=== PATIENT | male | born 1960 | race Caucasian/White ===

== ENCOUNTER → 2020-12-15 | Outpatient (CLI) | payer MEDICAID, OTHER ==
--- NOTE | 2020-12-15 16:02 | REP ---
INDICATION: RETAINED FOREIGN BODY FRAGMENTS, UNSPECIFIED MATERIAL COMPARISON: None. TECHNIQUE: AP and lateral views of the right tibia/fibula. FINDINGS: Age-related changes at the knee and ankle joint. No acute fracture or dislocation. No subcutaneous emphysema or foreign body. IMPRESSION: . No acute fracture or dislocation. <Electronically signed by Angus Lewis > 12/15/20 [id number]
--- NOTE | 2020-12-15 16:04 | REP ---
INDICATION: RETAINED FOREIGN BODY FRAGMENTS, UNSPECIFIED MATERIAL COMPARISON: None. TECHNIQUE: PA and lateral. FINDINGS: The mediastinum and cardiac silhouette are normal. The lung gay are clear and without acute consolidation, effusion, or pneumothorax. The skeletal structures are intact and normal. There may be a tiny 2 mm foreign body with in the subcutaneous tissue along the right parasternal anterior chest wall. No further foreign body identified or suggested. IMPRESSION: No acute cardiopulmonary process. Questionable tiny foreign body in the subcutaneous tissue along the anterior right chest wall. <Electronically signed by Angus Lewis > 12/15/20 [id number]
== END ==
LOC: M RAD 15:35
PROVIDERS: ATTEND Pediatrics
DX: Z18.9 Retained foreign body fragments, unspecified material (principal)

== ENCOUNTER → 2021-03-18 | Outpatient (CLI) | payer OTHER ==
[~2021-03-18] MED LIST: LISI10TA22
== END ==
LOC: M LABSMTC 10:05
PROVIDERS: ATTEND Anesthesiology
DX: Z01.812 Encounter for preprocedural laboratory examination (principal); Z11.52 Encounter for screening for COVID-19

== ENCOUNTER 2021-03-23 11:17 | Day surgery (SDC) | payer OTHER ==
[~2021-03-23] VITALS: Ht 175.3 cm; Wt 96.6 kg
[~2021-03-23 11:17] MED LIST changes: +LIDOCAINE 2% 100MG/5ML SDV (FOR ANES.) As Ordered ONE; +NS 1,000 ML IV ONE; +propofoL 200 MG/20 ML VIAL As Ordered ONE
--- NOTE | 2021-03-23 13:56 | ROOR ---
Patient Name: Cameron Morales Procedure Date: 03/23/2021 1:15 PM Date of : 1960 Age: 60 Room: [facility] Gender: Male Note Status: Finalized Procedure: Colonoscopy Indications: Screening for colorectal malignant neoplasm Providers: Jose Valerio MD Referring MD: Olga Berman MD Requesting Provider: Medicines: Monitored Anesthesia Care Complications: No immediate complications. Procedure: Pre-Anesthesia Assessment: - Prior to the procedure, a History and Physical was performed, and patient medications and allergies were reviewed. The patient is competent. The risks and benefits of the procedure and the sedation options and risks were discussed with the patient. All questions were answered and informed consent was obtained. Patient identification and proposed procedure were verified by the physician, the nurse and the anesthesiologist in the endoscopy suite. Mental Status Examination: alert and oriented. Airway Examination: normal oropharyngeal airway and neck mobility. Respiratory Examination: clear to auscultation. CV Examination: normal. Prophylactic Antibiotics: The patient does not require prophylactic antibiotics. Prior Anticoagulants: The patient has taken no previous anticoagulant or antiplatelet agents. ASA Grade Assessment: II - A patient with mild systemic disease. After reviewing the risks and benefits, the patient was deemed in satisfactory condition to undergo the procedure. The anesthesia plan was to use monitored anesthesia care (MAC). Immediately prior to administration of medications, the patient was re-assessed for adequacy to receive sedatives. The heart rate, respiratory rate, oxygen saturations, blood pressure, adequacy of pulmonary ventilation, and response to care were monitored throughout the procedure. The physical status of the patient was re-assessed after the procedure. The Colonoscope was introduced through the anus and advanced to the cecum, identified by appendiceal orifice and ileocecal valve. The colonoscopy was technically difficult and complex due to inadequate bowel prep, large indirect inguinoscrotal hernia containing sigmoid colon. This was helped with manual pressure. Hernia is chronically irreucible. The quality of the bowel preparation was poor. Findings: The perianal and digital rectal examinations were normal. A few small-mouthed diverticula were found in the sigmoid colon, transverse colon and ascending colon. Two flat polyps were found in the transverse colon. The polyps were diminutive in size. These polyps were removed with a cold snare. Resection and retrieval were complete. Estimated blood loss was minimal. The retroflexed view of the distal rectum and anal verge was normal and showed no anal or rectal abnormalities. Large amount of lavage performed to complete procedure, thick leftover semi solid stools found all throughout colon. I did not see any large masses, polyps but small/dimunitive flat polyps may hav been missed. Impression: - Preparation of the colon was poor. - Diverticulosis in the sigmoid colon, in the transverse colon and in the ascending colon. - Two diminutive polyps in the transverse colon, removed with a cold snare. Resected and retrieved. - The distal rectum and anal verge are normal on retroflexion view. Recommendation: - Discharge patient to home (ambulatory). - - Repeat colonoscopy after elective repair of the hernia. - Return to my office in 2 weeks. Procedure Code(s): --- Professional --- 56957, Colonoscopy, flexible; with removal of tumor(s), polyp(s), or other lesion(s) by snare technique Diagnosis Code(s): --- Professional --- Z12.11, Encounter for screening for malignant neoplasm of colon K63.5, Polyp of colon K57.30, Diverticulosis of large intestine without perforation or abscess without bleeding CPT copyright 2019 [employer]. All rights reserved. The codes documented in this report are preliminary and upon research neuropsychologist review may be revised to meet current compliance requirements. Jose Valerio MD Jose Valerio MD 03/23/2021 1:56:26 PM Electronically signed by Jose Valerio MD Number of Addenda: 0 Note Initiated On: 03/23/2021 1:15 PM Estimated Blood Loss: Estimated blood loss was minimal.
[2021-03-23 14:08] VITALS: BP 139/92
== END 2021-03-23 14:09 | disposition home or self-care (01) ==
LOC: M OPP 11:17
PROVIDERS: ATTEND Surgery
DX: Z12.11 Encounter for screening for malignant neoplasm of colon (principal); D12.3 Benign neoplasm of transverse colon; K57.30 Diverticulosis of large intestine without perforation or abscess without bleeding

== ENCOUNTER → 2021-05-05 | Outpatient (CLI) | payer OTHER ==
[~2021-05-05] MED LIST changes: -LIDOCAINE 2% 100MG/5ML SDV (FOR ANES.) As Ordered ONE; -LISI10TA22; +LISI10TA22 PO; -NS 1,000 ML IV ONE; -propofoL 200 MG/20 ML VIAL As Ordered ONE
== END ==
LOC: M LABSMTC 10:24
PROVIDERS: ATTEND Anesthesiology
DX: Z01.812 Encounter for preprocedural laboratory examination (principal); Z20.822 Contact with and (suspected) exposure to COVID-19

== ENCOUNTER → 2021-05-09 | Outpatient (CLI) | payer OTHER ==
--- NOTE | 2021-05-09 21:13 | ECGEPIP ---
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
== END ==
LOC: M EKG 10:57
PROVIDERS: ATTEND Anesthesiology
DX: Z01.818 Encounter for other preprocedural examination (principal); I10 Essential (primary) hypertension; Z96.9 Presence of functional implant, unspecified

== ENCOUNTER 2021-05-10 09:14 | Day surgery (SDC) | payer OTHER ==
[~2021-05-10] VITALS: Ht 175.3 cm; Wt 99.3 kg
[~2021-05-10 09:14] MED LIST changes: +CelecoXIB 400 MG CAP PO ONE; +LIDOCAINE 1% MDV 20ML VIAL SQ PRN; +LR 1,000 ML IV ONE; +ceFAZolin SOD 2 GM in IV 1 EA IV ONE
--- OUTSIDE RECORDS SUMMARY | 2021-05-10 09:19 | CCD | Continuity of Care Document ---
Author Author Cameron VALERIO MD Organization Unknown Address [address] [place] [address] [address] [place] [address] Phone [phone] Care Team Providers Care Catalyst Operator Chief Name Role Phone Olga Berman M.D. AUTM [phone] Problems Active Problems Provider Date Essential hypertension Jose Valerio MD Onset: 021 Social History Type Date Description Comments Sex Unknown ETOH Use 4 A Week Recreational Drug Use Current Drug User MARIJUAN A 3-4 X A DAY Tobacco Use Start: Unknown Denies Smoking Allergies, Adverse Reactions, Alerts Description No Known Drug Allergies Medications Active Medications SIG Qnty Indications Ordering Provide r Date No Active Medications Unknown 08/2020 History Medications Suprep Bowel Prep Kit 17.5-3.13-1.6GM/177ML Solution take per doctor's bowel prep instructions. 354ml Z12.1 1 Jose Valerio MD 03/16/2021 - 03/17/2021 No Active Medications Unknown - 03/16/2021 Immunizations Description No Information Available Vital Signs Date Vital Result Comment 12/30/2020 1:34pm BP Systolic 166 mmHg BP Diastolic 96 mmHg Heart Rate 98 /min Height 68 inches 5'8" Weight 223.38 lb BMI (Body Mass Index) 34.0 kg/m2 [place] Body Weight 154 lb Weight 101.323 kg BSA (Body Surface Area) 2.14 m2 Results Description No Information Available Procedures Description No Information Available Medical Devices Description No Information Available Encounters Description No Information Available Assessments Date Code Description Provider 12/30/2020 Z12.11 Screening for malignant neoplasm of colon Jose Valerio MD Plan of Treatment Future Appointment(s):* 04/05/2021 10:15 am - PAMELA Cabrera at [facility] 12/30/2020 - Jose Valerio MD* Z12.11 Screening for malignant neoplasm of colon* Comments:* Patient is an average risk for colorectal malignancy which at the age of 59 within 4-7% and increases with age. He is not complaining of any symptoms of changes in bowel habits, changes appears of his stools, bleeding with bowel movements nor any unexplained weight loss. I explained to him the rational for screening an opportunity to decrease risk for colorectal malignancy by removing the polyps in his colon and sending this for pathology which has prognostic significance on recurrence, and forming new colon polyps. The recommendation as it stands now is to do colonoscopy once every 10 years beginning at age 50 is no new or recommendations set the starting screening age of 45.I described to him how to perform a split those bowel prepI discussed with the patient the details of the proposed procedure, the benefits of performing the procedure, the most common risks on doing the procedure. This may include risks of dehydration, vomiting and abdominal cramping with the bowel prep, risks of bleeding, perforation during the colonoscopy. Perforation may happen up to a couple days after the procedure. Likewise this will be done under IV sedation and anesthesia we'll further discuss the risks of the medications they're going to use and risks of sedation.. I have given h im a chance to ask questions, voice out concerns. Patient has agreed to proceed Functional Status Description No Information Available Mental Status Description No Information Available Referrals Refer to Reason for Referral Status Appt Date Jose Valerio MD SCHEDULE COLONOSCOPY Scheduled 12/[address] [place] [phone]
--- OUTSIDE RECORDS SUMMARY | 2021-05-10 09:19 | CCD ---
Author Organization Unknown Address [address] [place] [address] Phone [phone] Care Team Providers Care Senior Business Manager Name Role Phone ARUNA BERMAN MD 3 [phone] [facility] [phone] Allergies Code Code System Name Reaction Severity Status Onset NKDA Medications Name Status Start Date Stop Date lisinopril 10 mg tablet TAKE ONE TABLET BY MOUTH EVERY DAY Active Not available Vitamin D3 50 mcg (2,000 unit) tablet Take 1 tablet every day by oral route. Active Not available Problems Name Status Onset Date Source Chronic Low Back Pain Active 12/15/2020 Vitamin D Deficiency Active 01/19/2021 Hyperlipidemia Active 01/19/2021 Left Inguinal Hernia Active 01/19/2021 Essential Hypertension Active 04/04/2021 Polyp of Colon Active 05/04/2021 Diverticulosis of Colon Active 05/04/2021 Procedures Date Name Performed by 12/15/2020 [facility] [address] [place] [phone] (Work Place) 12/15/2020 XR, Chest, 2 View [facility] [address] [place] [address] (Work Place) 12/15/2020 XR, Tibia + Fibula [facility] [address] [place] [address] (Work Place) Results Lab Results Date Name Specimen Result Interpretation Description Value Range Status Address 03/18/2021 SARS CoV 2 RNA, QL, Nasopharynx NASOPHARYNX No observation recorded. [facility]: [address] [facility] 01/21/2021 Thyroid Panel, Serum Blood venous Normal Thyroglobulin Antibodies <1 IU/mL < or = 1 IU/mL Final [facility]: [address] [facility] Blood venous Normal Thyroid Peroxidase Antibo dies 1 IU/mL <9 IU/mL Final [facility]: [address] [facility] 01/21/2021 Tsh Blood venous Normal Tsh 2.58 mIU/L 0.40-4.50 mIU/L Final [facility]: [address] [facility] 12/15/2020 Lipid Panel, Serum Blood venous Normal Jayne sterol, Total 192 mg/dL <200 mg/dL Final [facility]: [address] [facility] Blood venous Low HDL Cholesterol 34 mg/dL > or = 40 mg/dL Final [facility]: [address] [facility] Blood venous High Triglycerides 263 mg/dL <150 mg/dL Final [facility]: [address] [facility] Blood venous High LDL-cholesterol 120 mg/dL (ca lc) Final [facility]: [address] [facility] Blood venous High Chol/hdlc Ratio 5.6 (calc) <5 .0 (calc) [facility]: [address] [facility] Blood venous High Non HDL Cholesterol 158 mg/dL (calc) <130 mg/dL (calc) Final [facility]: [address] [facility] 12/15/2020 TSH, Serum or Plasma Blood venous Normal T3 Uptake 26 % 22-35 % Final [facility]: [address] [facility] Blood venous Normal T4 (Thyroxine), Total 5. 6 mcg/dL 4.9-10.5 mcg/dL Final [facility]: [address] [facility] Blood venous Normal Free T4 Index (T7) 1.5 1.4 -3.8 Final [facility]: [address] [facility] Blood venous High Tsh 6.70 mIU/L 0.40-4.50 mIU /L [facility]: [address] [facility] 12/15/2020 HIV 1+2 Ab + HIV1 P24 Ag, Quantitative I mmunoassay, Serum Blood venous Normal HIV Ag/Ab, 4TH Gen non-reactive non-reactive Fin al [facility]: [address] [facility] 12/15/2020 CMP, Serum or Plasma Blood venous High Glucose 100 mg/dL 65-99 mg/dL Final [facility]: [address] [facility] Blood venous Normal Urea Nitrogen (BUN) 9 mg/dL 7 -25 mg/dL [facility]: [address] [facility] Blood venous Normal Creatinine 1.00 mg/dL 0.70-1. 33 mg/dL [facility]: [address] [facility] Blood venous Normal eGFR Non-afr. [place]i 8 3 mL/min/1.73m2 > or = 60 mL/min/1.73m2 Final [facility]: [address] [facility] Blood venous Normal eGFR 96 mL/min/1.73m2 > or = 60 mL/min/1.73m2 Final [facility]: [address] [facility] Blood venous BUN/creatinine Ratio not applicable (calc) 6-22 (calc) [facility]: [address] [facility] Blood venous Normal Sodium 138 mmol/L 135-146 mmo l/L [facility]: [address] [facility] Blood venous Normal Potassium 4.1 mmol/L 3.5-5.3 mmol/L [facility]: [address] [facility] Blood venous Normal Chloride 100 mmol/L 98-110 mm ol/L [facility]: [address] [facility] Blood venous Normal Carbon Dioxide 26 mmol/L 20-3 2 mmol/L [facility]: [address] [facility] Blood venous Normal Calcium 9.8 mg/dL 8.6-10.3 mg /dL [facility]: [address] [facility] Blood venous Normal Protein, Total 7.7 g/dL 6.1-8 .1 g/dL [facility]: [address] [facility] Blood venous Normal Albumin 4.6 g/dL 3.6-5.1 g/dL [facility]: [address] [facility] Blood venous Normal Globulin 3.1 g/dL (calc) 1.9- 3.7 g/dL (calc) [facility]: [address] [facility] Blood venous Normal Albumin/globulin Ratio 1 .5 (calc) 1.0-2.5 (calc) [facility]: [address] [facility] Blood venous Normal Bilirubin, Total 0.8 mg/dL 0. 2-1.2 mg/dL Final [facility]: [address] [facility] Blood venous Normal Alkaline Phosphatase 82 U/L 3 5-144 U/L Final [facility]: [address] [facility] Blood venous Normal Ast 30 U/L 10-35 U/L Final [facility]: [address] [facility] Blood venous Normal Alt 30 U/L 9-46 U/L Final [facility]: [address] [place] [facility] 12/15/2020 Hepatitis C Virus Ab, Serum Blood venous Normal Hepatitis C Antibody non-reactive non-reactive Final [facility]: [address] [place] [facility] Blood venous Normal Index 0.01 <1.00 Final [facility]: [address] [facility] 12/15/2020 Vitamin D, 25-Hydroxy, Total, Serum Blood venous Low Vitamin D,25-Oh,total,ia 27 NG/mL 30-100 NG/mL Final [facility]: [address] [facility] 12/15/2020 HbA1C (Hemoglobin a1C), Blood Blood venous Normal Hemoglobin a1C 5.6 % of total HGB <5.7 % of total HGB Final [facility]: [address] [facility] 12/15/2020 CT + NG RNA, PCR, Unspecified Specimen Normal Chlamydia Trachomatis RNA, Tma, Urogenital not detected not detected Final [facility]: [address] [facility] Normal Neisseria Gonorrhoeae RNA, Tma, Urogenital not detected not detected [facility] [address] [facility] Comment Final [facility]: [address] [facility] 12/15/2020 RPR (Rapid Plasma Reagin), Serum Blood venous Normal RPR (DX) W/refl Titer and Confirmatory Testing non-reactive non-reactive Final [facility]: [address] [place] [facility] 12/15/2020 Urinalysis, Dipstick, Auto Normal Bilirubin ne g Final [facility]: [address] [facility] Normal Blood +- Final [facility]: [address] [facility] Normal Glucose neg Final [facility]: [address] [facility] Normal Ketone neg Final Main [facility]: [address] [facility] Normal Leukocytes neg Final Main [place] [facility]: [address] [facility] Normal Nitrite neg Final Main Ca [facility]: [address] [facility] Normal Ph 6.0 Final Main [facility] Medical: [address] [facility] Normal Protein neg Final Main Ca [facility]: [address] [facility] Normal Specific [place] 1.020 Final Main [place] [facility]: [address] [facility] Normal Urobilinogen 0.2 Final [facility] in [place] [facility]: [address] [facility] Past Encounters 05/04/2021 Pre-surgery Evaluation; Essential Hypertension; Hyperlipidemia; Vitamin D Deficiency; Administration of Influenza Vaccine Aruna Berman MD: [address] [place] [phone], Ph. 04/04/2021 Body Mass Index 30+ - Obesity; Hyperlipidemia; Essential Hypertension; Vitamin D Deficiency; Immunization Advised Aruna Berman MD: [address] [place] [phone], Ph. 01/21/2021 Hyperlipidemia; Vitamin D Deficiency; Thyroid Function Tests Abnormal; Body Mass Index 30+ - Obesity; Elevated Blood-pressure Reading without Diagnosis of Hypertension; Retained Foreign Body; Chest Wall Pain Aruna Berman MD: [address] [place] [phone], Ph. 12/15/2020 Patient New to Provider; Hyperlipidemia Screening; Endocrine/metabolic Screening; Venereal Disease Screening; Body Mass Index 30+ - Obesity; Elevated Blood-pressure Reading without Diagnosis of Hypertension; Retained Foreign Body; Immunization Due; Screening for Malignant Neoplasm of Colon; Left Inguinal Hernia Aruna Berman MD: [address] [place] [phone], Ph. Social History Tobacco Smoking Status Never Smoker Vaccine List Vaccine Type COVID-19, mRNA, LNP-S, PF, 100 mcg/0.5 m L dose 10/21/2020 11/15/2020 influenza, injectable, quadrivalent, pre servative free 05/04/2021 Tdap 10.5 mL Plan of Care Reminders Provider Appointments None recorded. Lab None recorded. Referral None recorded. Procedures None recorded. Surgeries None recorded. Imaging None recorded. Vitals 05/04/2021 03:40PM MEDICAL CLEARANCE Height Weight BMI Blood Pressure 68 in 213 lbs 4 oz 32.4 kg/m2 110/72 mm[Hg] 04/04/2021 09:00AM ESTABLISHED [id number] Height Weight BMI Blood Pressure 68 in 214 lbs 4 oz 32.6 kg/m2 123/81 mm[Hg] 01/21/2021 09:40AM ESTABLISHED [id number] Height Weight BMI Blood Pressure 68 in 219 lbs 33.3 kg/m2 171/101 mm[Hg] 12/15/2020 02:20PM NEW PATIENT (12yrs - OLDER) Height Weight BMI Blood Pressure 68 in 219 lbs 16 oz 33.5 kg/m2 (1) 171/99 mm [Hg] (2) 157/100 mm[Hg]
--- OUTSIDE RECORDS SUMMARY | 2021-05-10 09:19 | CCD | Continuity of Care Document ---
Author Author Cameron VALERIO MD Organization Unknown Address [address] [place] [phone] Phone [phone] Care Team Providers Care Strategy Manager Name Role Phone Olga Berman M.D. AUTM [phone] Problems Active Problems Provider Date Essential hypertension Jose Valerio MD Onset: 021 Social History Type Date Description Comments Sex Unknown ETOH Use 4 A Week Recreational Drug Use Current Drug User MARIJUAN A 3-4 X A DAY Tobacco Use Start: Unknown Denies Smoking Allergies, Adverse Reactions, Alerts Description No Known Drug Allergies Medications Active Medications SIG Qnty Indications Ordering Provide r Date Lisinopril 10mg Tablets Take One Tablet By Mouth Every Day Unknown History Medications Suprep Bowel Prep Kit 17.5-3.13-1.6GM/177ML Solution take per doctor's bowel prep instructions. 354ml Z12.1 1 Jose Valerio MD 03/16/2021 - 03/17/2021 No Active Medications Unknown - 03/16/2021 Immunizations Description No Information Available Vital Signs Date Vital Result Comment 04/07/2021 2:06pm BP Systolic 123 mmHg BP Diastolic 83 mmHg Body Temperature 98.3 F Height 68 inches 5'8" Weight 216.00 lb BMI (Body Mass Index) 32.8 kg/m2 [place] Body Weight 154 lb Weight 97.978 kg BSA (Body Surface Area) 2.11 m2 04/05/2021 10:04am BP Systolic 108 mmHg BP Diastolic 70 mmHg Body Temperature 98.3 F Height 68 inches 5'8" Weight 216.50 lb BMI (Body Mass Index) 32.9 kg/m2 [place] Body Weight 154 lb Weight 98.204 kg BSA (Body Surface Area) 2.11 m2 Results Test Acquired Date Facility Test Result H/L Range Note Laboratory test finding 03/23/2021 [facility] Main Lab [address] [place] [address] [phone] Pathology Request For Service (SEE NOTE) 1 1 FINAL DIAGNOSIS Transverse colon polyp, polypectomy: Tubular adenoma. 03/24/2021 - 1525 CLINICAL DIAGNOSIS Screening 03/24/2021 - 131 GROSS DIAGNOSIS Received in formalin labeled "transverse colon polyp" and consists of a fragment of tissue, 0.3 x 0.2 x 0.1 cm. All in one. -OA 03/24/2021 - 1315 Signed GABRIEL MÁRQUEZ MD 03/25/2021 0852 Procedures Date Code Description Status 04/05/2021 42964 Office/Outpatient Established Lo w MDM 20-29 Min Completed 03/23/2021 08541 Colonoscopy W/ Poly Completed Medical Devices Description No Information Available Encounters Description No Information Available Assessments Date Code Description Provider 04/05/2021 D12.3 Benign neoplasm of transverse co [place] PAMELA Cabrera 04/05/2021 K57.30 Diverticulosis of la rge intestine without perforation or abscess without bleeding PAMELA Cabrera 04/05/2021 K40.90 Unilateral inguinal hernia, without obstruction or gangrene, not specified as recurrent PAMELA Cabrera 03/23/2021 Z12.11 Encounter for screening for helen gnant neoplasm of colon Jose Valerio MD 03/23/2021 D12.3 Benign neoplasm of transverse co [place] Jose Valerio MD 03/23/2021 K57.30 Diverticulosis of la rge intestine without perforation or abscess without bleeding Jose Valerio MD 12/30/2020 Z12.11 Screening for malignant neoplasm of colon Jose Valerio MD Plan of Treatment No Information Available Functional Status Description No Information Available Mental Status Description No Information Available Referrals Refer to Reason for Referral Status Appt Date Jose Valerio MD SCHEDULE COLONOSCOPY Scheduled 12/14 [address] [facility] [address] [place] [address] [phone]
--- OUTSIDE RECORDS SUMMARY | 2021-05-10 09:19 | CCD ---
Author Author [facility] Organization [facility] Address Unknown Phone Unavailable Care Team Providers Care Lmsw Name Role Phone Laquita QUISPE MD Unavailable Unavailable Laquita QUISPE MD Unavailable Unavailable Laquita QUISPE MD Unavailable Unavailable Laquita QUISPE MD Unavailable Unavailable Laquita QUISPE MD Unavailable Unavailable Laquita QUISPE MD Unavailable Unavailable Laquita QUISPE MD Unavailable Unavailable Laquita QUISPE MD Unavailable Unavailable Laquita QUISPE MD Unavailable Unavailable Laquita QUISPE MD Unavailable Unavailable Laquita QUISPE MD Unavailable Unavailable Laquita QUISPE MD Unavailable Unavailable Laquita QUISPE MD Unavailable Unavailable Laquita QUISPE MD Unavailable Unavailable Laquita QUISPE MD Unavailable Unavailable Laquita QUISPE MD Unavailable Unavailable Laquita QUISPE MD Unavailable Unavailable Laquita QUISPE MD Unavailable Unavailable Laquita QUISPE MD Unavailable Unavailable Laquita QUISPE MD Unavailable Unavailable Laquita QUISPE MD Unavailable Unavailable Laquita QUISPE MD Unavailable Unavailable Laquita QUISPE MD Unavailable Unavailable Laquita QUISPE MD Unavailable Unavailable Laquita QUISPE MD Unavailable Unavailable Laquita QUISPE MD Unavailable Unavailable Laquita QUISPE MD Unavailable Unavailable Laquita QUISPE MD Unavailable Unavailable Laquita QUISPE MD Unavailable Unavailable Laquita QUISPE MD Unavailable Unavailable BARAYUGALaquita MD Unavailable Unavailable BARAYUGA, Laquita JC MD Unavailable Unavailable BARAYUGA, Laquita JC MD Unavailable Unavailable BARAYUGA, Laquita JC MD Unavailable Unavailable BARAYUGA, Laquita JC MD Unavailable Unavailable Antonella, Janet Unavailable Unavailable Antonella, Janet Unavailable Unavailable Antonella, Janet Unavailable Unavailable Antonella, Janet Unavailable Unavailable Antonella, Janet Unavailable Unavailable Antonella, Janet Unavailable Unavailable Antonella, Janet Unavailable Unavailable Antonella, Janet Unavailable Unavailable Antonella, Janet Unavailable Unavailable Antonella, Janet Unavailable Unavailable Antonella, Janet Unavailable Unavailable Antonella, Janet Unavailable Unavailable Antonella, Janet Unavailable Unavailable Antonella, Janet Unavailable Unavailable Antonella, Janet Unavailable Unavailable Antonella, Janet Unavailable Unavailable Antonella, Janet Unavailable Unavailable Antonella, Janet Unavailable Unavailable Antonella, Janet Unavailable Unavailable Antonella, Janet Unavailable Unavailable Antonella, Janet Unavailable Unavailable Antonella, Janet Unavailable Unavailable Antonella, Janet Unavailable Unavailable Antonella, Janet Unavailable Unavailable Antonella, Janet Unavailable Unavailable Antonella, Janet Unavailable Unavailable Romero, L Radha RPA Unavailable Unavailable Romero, L Radha RPA Unavailable Unavailable Romero, L Radha RPA Unavailable Unavailable Romero, L Radha RPA Unavailable Unavailable Romero, L Radha RPA Unavailable Unavailable Romero, L Radha RPA Unavailable Unavailable Romero, L Radha RPA Unavailable Unavailable Romero, L Radha RPA Unavailable Unavailable Romero, L Radha RPA Unavailable Unavailable Romero, L Radha RPA Unavailable Unavailable Romero, L Radha RPA Unavailable Unavailable Romero, L Radha RPA Unavailable Unavailable Romero, L Radha RPA Unavailable Unavailable Romero, L Radha RPA Unavailable Unavailable Romero, L Radha RPA Unavailable Unavailable Romero, L Radha RPA Unavailable Unavailable Romero, L Radha RPA Unavailable Unavailable Romero, L Radha RPA Unavailable Unavailable Romero, L Radha RPA Unavailable Unavailable Romero, L Radha RPA Unavailable Unavailable Romero, L Radha RPA Unavailable Unavailable Romero, L Radha RPA Unavailable Unavailable Romero, L Radha RPA Unavailable Unavailable Romero, L Radha RPA Unavailable Unavailable Romero, L Radha RPA Unavailable Unavailable Romero, L Radha RPA Unavailable Unavailable Romero, L Radha RPA Unavailable Unavailable Romero, L Radha RPA Unavailable Unavailable Ormero, L Radha RPA Unavailable Unavailable Romero, L Radha RPA Unavailable Unavailable Romero, L Radha RPA Unavailable Unavailable Romero, L Radha RPA Unavailable Unavailable Re-disclosure Warning The records that you are about to access may contain information from federally-assisted alcohol or drug abuse programs. If such information is present, then the following federally mandated warning applies: This information has been disclosed to you from records protected by federal confidentiality rules (42 CFR part 2). The federal rules prohibit you from making any further disclosure of this information unless further disclosure is expressly permitted by the written consent of the person to whom it pertains or as otherwise permitted by 42 CFR part 2. A general authorization for the release of medical or other information is NOT sufficient for this purpose. The Federal rules restrict any use of the information to criminally investigate or prosecute any alcohol or drug abuse patient.The records that you are about to access may contain highly sensitive health information, the redisclosure of which is protected by Article 27-F of the [facility] Public Health law. If you continue you may have access to information: Regarding HIV / AIDS; Provided by facilities licensed or operated by the [facility] Office of Mental Health; or Provided by the [facility] Office for People With Developmental Disabilities. If such information is present, then the following [facility] mandated warning applies: This information has been disclosed to you from confidential records which are protected by state law. State law prohibits you from making any further disclosure of this information without the specific written consent of the person to whom it pertains, or as otherwise permitted by law. Any unauthorized further disclosure in violation of state law may result in a fine or halfway sentence or both. A general authorization for the release of medical or other information is NOT sufficient authorization for further disc losure. Encounters Encounter Providers Location Date Indications Data Source(s ) Olga Berman MD: [place] [address], Ph. Attender: Olga Berman [place] - [facility] Medical 05/05/2021 12:00:00 AM EDT [facility] ([facility]) Olga Berman MD: [address], [place] [address], Ph. Attender: Olga Berman [facility] Medical 05/04/2021 12:00:00 AM EDT [facility] ([facility]) Olga Berman MD: [address], [place] [address], Ph. Attender: Olga Berman [facility] Medical 05/04/2021 12:00:00 AM EDT [facility] ([facility]) Outpatient Attender: HOSEA Donovan/Sirisha/Chip/ Reindl 04/07/2021 02:00:00 PM EDT [facility] ([facility]) Outpatient Attender: Radha Donovan/Sirisha/Chip/R eindl 04/05/2021 10:15:00 AM EDT [facility] ([facility]) Olga Berman MD: [address], [place] [address], Ph. Attender: Olga Berman [facility] Medical 04/04/2021 12:00:00 AM EDT [facility] ([facility]) Olga Berman MD: [address], [place] [address], Ph. Attender: Olga Berman [facility] Medical 04/04/2021 12:00:00 AM EDT [facility] ([facility]) Olga Berman MD: [address], [place] [address], Ph. Attender: Olga Berman [facility] Medical 04/04/2021 12:00:00 AM EDT [facility] ([facility]) Olga Berman MD: [address], [place] [address], Ph. Attender: Olga Berman [facility] Medical 01/21/2021 12:00:00 AM EDT [facility] ([facility]) Olga Berman MD: [address], [place] [address], Ph. Attender: Olga Berman [facility] Medical 01/21/2021 12:00:00 AM EDT [facility] ([facility]) Olga Berman MD: [address], [place] [address], Ph. Attender: Olga Berman [facility] Medical 01/21/2021 12:00:00 AM EDT [facility] ([facility]) Olga Berman MD: [address], [place] [address], Ph. Attender: Olga Berman [facility] Medical 01/21/2021 12:00:00 AM EDT [facility] ([facility]) Olga Berman MD: [address], [place] [address], Ph. Attender: Olga Berman [facility] Medical 12/15/2020 12:00:00 AM EDT [facility] ([facility]) Olga Berman MD: [address], [place] [address], Ph. Attender: Olga Berman [facility] Medical 12/15/2020 12:00:00 AM EDT [facility] ([facility]) Olga Berman MD: [address], [place] [address], Ph. Attender: Olga Berman [facility] Medical 12/15/2020 12:00:00 AM EDT [place] ([facility]) Olga Berman MD: [address], [place] [address], Ph. Attender: Olga Berman [facility] Medical 12/15/2020 12:00:00 AM EDT [place] ([facility]) Olga Berman MD: [address], [facility] [place] [address], Ph. Attender: Olga Berman [facility] Medical 12/15/2020 12:00:00 AM EDT [place] ([facility]) Immunizations Vaccine Date Status Description Data Source(s) New in 2011. IIV4 05/04/2021 04:06:00 PM EDT completed 05/04/20 21 [facility]) New in 2011. IIV4 05/04/2021 04:06:00 PM EDT completed 05/04/20 21 [facility]) Tdap 12/15/2020 03:19:00 PM EDT completed 12/15/2020 0.5 mL [place] ([facility]) Tdap 12/15/2020 03:19:00 PM EDT completed 12/15/2020 0.5 mL [place] ([facility]) Tdap 12/15/2020 03:19:00 PM EDT completed 12/15/2020 0.5 mL [facility] ([facility]) Tdap 12/15/2020 03:19:00 PM EDT completed 12/15/2020 0.5 mL [place] ([facility]) Tdap 12/15/2020 03:19:00 PM EDT completed 12/15/2020 0.5 mL [facility]) COVID-19, mRNA, LNP-S, PF, 100 mcg/0.5 mL dose 11/15/2020 12 :00:00 AM EDT completed 11/15/2020 [facility]) COVID-19, mRNA, LNP-S, PF, 100 mcg/0.5 mL dose 11/15/2020 12 :00:00 AM EDT completed 11/15/2020 [facility]) COVID-19, mRNA, LNP-S, PF, 100 mcg/0.5 mL dose 11/15/2020 12 :00:00 AM EDT completed 11/15/2020 [facility]) COVID-19, mRNA, LNP-S, PF, 100 mcg/0.5 mL dose 11/15/2020 12 :00:00 AM EDT completed 11/15/2020 [facility]) COVID-19, mRNA, LNP-S, PF, 100 mcg/0.5 mL dose 10/21/2020 12 :00:00 AM EDT completed 10/21/2020 [facility]) COVID-19, mRNA, LNP-S, PF, 100 mcg/0.5 mL dose 10/21/2020 12 :00:00 AM EDT completed 10/21/2020 [facility]) COVID-19, mRNA, LNP-S, PF, 100 mcg/0.5 mL dose 10/21/2020 12 :00:00 AM EDT completed 10/21/2020 [facility]) COVID-19, mRNA, LNP-S, PF, 100 mcg/0.5 mL dose 10/21/2020 12 :00:00 AM EDT completed 10/21/2020 [facility]) Medications Medication Brand Name Start Date Product Form Dose Route Admi nistrative Instructions Pharmacy Instructions Status Indications Reaction Description Data Source(s) No Active Medications 03/17/2021 12:00:00 AM EDT active [facility] ([facility] ) Suprep Bowel Prep Kit Suprep Bowel Prep Kit 03/16/2021 12:00:00 AM EDT completed [facility] ([facility] ) 10 mg 01/21/2021 12:00:00 AM EDT tablet 30 TAKE ONE TABLET BY MOUTH EVERY DAY TAKE ONE TABLET BY MOUTH EVERY DAY SOLD: 04/26/2021 [facility] 10 mg 01/21/2021 12:00:00 AM EDT tablet 30 TAKE ONE TABLET BY MOUTH EVERY DAY TAKE ONE TABLET BY MOUTH EVERY DAY SOLD: 03/24/2021 [facility] 10 mg 01/21/2021 12:00:00 AM EDT tablet 30 TAKE ONE TABLET BY MOUTH EVERY DAY TAKE ONE TABLET BY MOUTH EVERY DAY SOLD: 01/21/2021 [facility] 10 mg 01/21/2021 12:00:00 AM EDT tablet 30 TAKE ONE TABLET BY MOUTH EVERY DAY TAKE ONE TABLET BY MOUTH EVERY DAY SOLD: 02/17/2021 [facility] No Active Medications 12/30/2020 12:00:00 AM EDT completed [facility] ([facility], ) Insurance Providers Payer name Policy type / Coverage type Policy ID Covered republican ID Covered republican's relationship to zhou Policy Zhou Plan Information [facility] [id number] SP [id number] [facility] MED[facility] [id number] SP [id number] C [facility] [id number] SP [id number] Problems, Conditions, and Diagnoses Code Display Name Description Problem Type Effective Dates Data Source(s) 754799528 Diverticulosis of colon Diverticulosis of Colon Proble m 05/04/2021 12:00:00 AM EDT [facility] ([facility]) [id number] Polyp of colon Polyp of Colon Problem 05/04/2021 12:00: 00 AM EDT [facility] ([facility]) [id number] Diverticulosis of colon Diverticulosis of Colon Proble m 05/04/2021 12:00:00 AM EDT [facility] ([facility]) 89671339 Polyp of colon Polyp of Colon Problem 05/04/2021 12:00: 00 AM EDT [place] ([facility]) [id number] Essential hypertension Essential Hypertension Problem 04/04/2021 12:00:00 AM EDT [facility] ([facility]) 22191340 Essential hypertension Essential Hypertension Problem 04/04/2021 12:00:00 AM EDT [facility] ([facility]) [id number] Essential hypertension Essential Hypertension Problem 04/04/2021 12:00:00 AM EDT [facility] ([facility]) [id number] Left inguinal hernia Left Inguinal Hernia Problem 01/19/2021 12:00:00 AM EDT [facility] ([facility]) 55756169 Hyperlipidemia Hyperlipidemia Problem 01/19/2021 12:00: 00 AM EDT [facility] ([facility]) 59503650 Vitamin D deficiency Vitamin D Deficiency Problem 01/19/2021 12:00:00 AM EDT [facility] ([facility]) 372713933 Left inguinal hernia Left Inguinal Hernia Problem 01/19/2021 12:00:00 AM EDT [facility] ([facility]) 68049324 Hyperlipidemia Hyperlipidemia Problem 01/19/2021 12:00: 00 AM EDT [facility] ([facility]) 05532366 Vitamin D deficiency Vitamin D Deficiency Problem 01/19/2021 12:00:00 AM EDT [facility] ([facility]) 548651607 Left inguinal hernia Left Inguinal Hernia Problem 01/19/2021 12:00:00 AM EDT [facility] ([facility]) 34564094 Hyperlipidemia Hyperlipidemia Problem 01/19/2021 12:00: 00 AM EDT [facility] ([facility]) 68821860 Vitamin D deficiency Vitamin D Deficiency Problem 01/19/2021 12:00:00 AM EDT [facility] ([facility]) 311412950 Left inguinal hernia Left Inguinal Hernia Problem 01/19/2021 12:00:00 AM EDT [facility] ([facility]) 49086002 Hyperlipidemia Hyperlipidemia Problem 01/19/2021 12:00: 00 AM EDT [facility] ([facility]) 21307354 Vitamin D deficiency Vitamin D Deficiency Problem 01/19/2021 12:00:00 AM EDT [facility] ([facility]) 48846152 Essential hypertension Essential hypertension Problem 12/30/2020 12:00:00 AM EDT [facility] ([facility], ) 290816563 Chronic low back pain Chronic Low Back Pain Problem 12/15/2020 12:00:00 AM EDT [facility] ([facility]) 946388622 Chronic low back pain Chronic Low Back Pain Problem 12/15/2020 12:00:00 AM EDT [place] ([facility]) 886262835 Chronic low back pain Chronic Low Back Pain Problem 12/15/2020 12:00:00 AM EDT [place] ([facility]) 688900174 Chronic low back pain Chronic Low Back Pain Problem 12/15/2020 12:00:00 AM EDT [place] ([facility]) 402170930 Chronic low back pain Chronic Low Back Pain Problem 12/15/2020 12:00:00 AM EDT [place] ([facility]) Surgeries/Procedures Procedure Description Date Indications Data Source(s) OFFICE OUTPATIENT VISIT 15 MINUTES 04/07/2021 12:00:00 AM EDT [facility]) OFFICE OUTPATIENT VISIT 15 MINUTES 04/05/2021 12:00:00 AM EDT [facility]) Colonoscopy W/ Poly 03/23/2021 12:00:00 AM EDT [facility] ([facility]) Results ID Date Data Source [id number] 03/23/2021 01:42:00 PM EDT [facility]) Name Value Range Interpretation Code Description Data Claudette rce(s) Supporting Document(s) Surgical pathology study Laboratory test result [facility] ([facility]) FINAL DIAGNOSIS Transverse colon polyp, polypectomy: Tubular adenoma. 03/24/2021 - 1525 CLINICAL DIAGNOSIS Screening 03/24/2021 - 1316 GROSS DIAGNOSIS Received in formalin labeled "transverse colon polyp" and consists of a fragment of tissue, 0.3 x 0.2 x 0.1 cm. All in one. -OA 03/24/2021 - 1315 Signed GABRIEL MÁRQUEZ MD 03/25/2021 0852 ID Date Data Source [id number] 03/18/2021 09:55:00 AM EDT [place] ([facility]) Name Value Range Interpretation Code Description Data Claudette rce(s) Supporting Document(s) ID Date Data Source [id number] 03/18/2021 09:55:00 AM EDT [facility]) Name Value Range Interpretation Code Description Data Claudette rce(s) Supporting Document(s) ID Date Data Source [id number] 03/18/2021 09:55:00 AM EDT [facility]) Name Value Range Interpretation Code Description Data Claudette rce(s) Supporting Document(s) ID Date Data Source [id number] 01/21/2021 12:00:00 AM EDT [facility]) Name Value Range Interpretation Code Description Data Claudette rce(s) Supporting Document(s) Thyrotropin [Units/volume] in Serum or Plasma 2.58 mIU/L 0.40-4.50 Tsh [facility]) ID Date Data Source [id number] 01/21/2021 12:00:00 AM EDT [facility]) Name Value Range Interpretation Code Description Data Claudette rce(s) Supporting Document(s) Thyroglobulin Ab [Units/volume] in Serum or Plasma <1 < o r = 1 Thyroglobulin Antibodies [facility]) Thyroperoxidase Ab [Units/volume] in Serum or Plasma 1 IU/mL < 9 Thyroid Peroxidase Antibodies [facility]) ID Date Data Source [id number] 01/21/2021 12:00:00 AM EDT [facility]) Name Value Range Interpretation Code Description Data Claudette rce(s) Supporting Document(s) Thyrotropin [Units/volume] in Serum or Plasma 2.58 mIU/L 0.40-4.50 Tsh [facility]) ID Date Data Source [id number] 01/21/2021 12:00:00 AM EDT [facility]) Name Value Range Interpretation Code Description Data Claudette rce(s) Supporting Document(s) Thyroglobulin Ab [Units/volume] in Serum or Plasma <1 < o r = 1 Thyroglobulin Antibodies [facility] ([facility]) Thyroperoxidase Ab [Units/volume] in Serum or Plasma 1 IU/mL < 9 [facility] ID Date Data Source [id number] 01/21/2021 12:00:00 AM EDT [facility]) Name Value Range Interpretation Code Description Data Claudette rce(s) Supporting Document(s) Thyrotropin [Units/volume] in Serum or Plasma 2.58 mIU/L 0.40-4.50 Tsh [facility]) ID Date Data Source [id number] 01/21/2021 12:00:00 AM EDT [facility]) Name Value Range Interpretation Code Description Data Claudette rce(s) Supporting Document(s) Thyroglobulin Ab [Units/volume] in Serum or Plasma <1 < o r = 1 Thyroglobulin Antibodies [facility] ([facility]) Thyroperoxidase Ab [Units/volume] in Serum or Plasma 1 IU/mL < 9 Thyroid Peroxidase Antibodies [facility]) ID Date Data Source [id number] 12/15/2020 03:10:00 PM EDT [facility]) Name Value Range Interpretation Code Description Data Claudette rce(s) Supporting Document(s) Reagin Ab [Presence] in Serum by RPR non-reactive non-reactive RPR (DX) W/refl Titer and Confirmatory Testing [facility]) ID Date Data Source [id number] 12/15/2020 03:10:00 PM EDT [facility]) Name Value Range Interpretation Code Description Data Claudette rce(s) Supporting Document(s) Chlamydia trachomatis rRNA [Presence] in Unspecified specimen by Probe and target amplification method not detected not detected Chla mydia Trachomatis RNA, Tma, [facility] Neisseria gonorrhoeae rRNA [Presence] in Unspecified specimen by Probe and target amplification method not detected not detected Neis seria Gonorrhoeae RNA, Tma, Urogenital [place] ([facility]) comment Comment [facility] ([facility]) ID Date Data Source [id number] 12/15/2020 03:10:00 PM EDT [facility]) Name Value Range Interpretation Code Description Data Claudette rce(s) Supporting Document(s) Hemoglobin A1c/Hemoglobin.total in Blood 5.6 %_of_total_HGB <5.7 Hemoglobin a1C [facility]) ID Date Data Source [id number] 12/15/2020 03:10:00 PM EDT [facility]) Name Value Range Interpretation Code Description Data Claudette rce(s) Supporting Document(s) Calcidiol [Mass/volume] in Serum or Plasma 27 NG/mL 30-100 Below low normal Vitamin D,25-Oh,total,ia [facility]) ID Date Data Source [id number] 12/15/2020 03:10:00 PM EDT [facility]) Name Value Range Interpretation Code Description Data Claudette rce(s) Supporting Document(s) Hepatitis C virus Ab [Presence] in Serum or Plasma by Immuno assay non-reactive non-reactive Hepatitis C Antibody [place] ([facility]) Hepatitis C virus Ab Signal/Cutoff in Serum or Plasma by Immunoassa y <1.00 Index [facility]) ID Date Data Source [id number] 12/15/2020 03:10:00 PM EDT [facility]) Name Value Range Interpretation Code Description Data Claudette rce(s) Supporting Document(s) Glucose [Mass/volume] in Serum or Plasma 100 mg/dL 65-99 Above high normal Glucose [place] ([facility]) Urea nitrogen [Mass/volume] in Serum or Plasma 9 mg/dL 7-25 Urea Nitrogen (BUN) [facility] ([facility]) Glomerular filtration rate/1.73 sq M.pre dicted among non-blacks [Volume Rate/Area] in Serum, Plasma or Blood by Creatinine-based formula (CKD-EPI) 83 mL/min/1.73m2 > or = 60 eGFR Non-afr. Japanese [facility] ([facility]) Creatinine [Mass/volume] in Serum or Plasma 1.00 mg/dL 0.70-1.33 Creatinine [facility] ([facility]) Glomerular filtration rate/1.73 sq M.pre dicted among blacks [Volume Rate/Area] in Serum, Plasma or Blood by Creatinine-based formula (CKD-EPI) 96 mL/min/1.73m2 > or = 60 eGFR [facility] ([facility]) Sodium [Moles/volume] in Serum or Plasma 138 mmol/L 135-146 Sodium [facility] ([facility]) Urea nitrogen/Creatinine [Mass Ratio] in Serum or Plasma not applic able 6-22 BUN/creatinine Ratio [facility] ([facility]) Carbon dioxide, total [Moles/volume] in Serum or Plasma 26 mmol/L 20-32 Carbon Dioxide [facility] ([facility]) Potassium [Moles/volume] in Serum or Plasma 4.1 mmol/L 3.5-5.3 Potassium [facility] ([facility]) Chloride [Moles/volume] in Serum or Plasma 100 mmol/L 98-110 [facility]loride [facility] Globulin [Mass/volume] in Serum by calculation 3.1 g/dL_(calc) 1.9- 3.7 Globulin [place] ([facility]) Protein [Mass/volume] in Serum or Plasma 7.7 g/dL 6.1-8.1 Protein, Total [facility] Calcium [Mass/volume] in Serum or Plasma 9.8 mg/dL 8.6-10.3 Calcium [facility]) Albumin [Mass/volume] in Serum or Plasma 4.6 g/dL 3.6-5.1 Albumin [facility]) Bilirubin.total [Mass/volume] in Serum or Plasma 0.8 mg/dL 0.2-1 .2 Bilirubin, Total [place] ([facility]) Albumin/Globulin [Mass Ratio] in Serum or Plasma 1.5 (calc) 1.0-2 .5 Albumin/globulin Ratio [facility] ([facility]) Alkaline phosphatase [Enzymatic activity/volume] in Serum or Plasma 82 U/L 35-144 Alkaline Phosphatase [place] ([facility]) Aspartate aminotransferase [Enzymatic activity/volume] in Serum or Plasma 30 U/L 10-35 Ast [place] ([facility]) Alanine aminotransferase [Enzymatic activity/volume] in Seru m or Plasma 30 U/L 9-46 Alt [place] ([facility]) ID Date Data Source [id number] 12/15/2020 03:10:00 PM EDT [facility]) Name Value Range Interpretation Code Description Data Claudette rce(s) Supporting Document(s) HIV 1+2 Ab+HIV1 p24 Ag [Presence] in Serum or Plasma b y Immunoassay non-reactive non-reactive HIV Ag/Ab, 4TH Gen [facility]) ID Date Data Source [id number] 12/15/2020 03:10:00 PM EDT [facility]) Name Value Range Interpretation Code Description Data Claudette rce(s) Supporting Document(s) Thyroxine (T4) free index in Serum or Plasma by calculation 1.4-3.8 Free T4 Index (T7) [place] ([facility]) Triiodothyronine resin uptake (T3RU) in Serum or Plasma 26 % 22 -35 T3 Uptake [place] ([facility]) Thyroxine (T4) [Mass/volume] in Serum or Plasma 5.6 mcg/dL 4.9-10 .5 T4 (Thyroxine), Total [facility]) Thyrotropin [Units/volume] in Serum or Plasma 6.70 mIU/L 0. 40-4.50 Above high normal Tsh [facility]) ID Date Data Source [id number] 12/15/2020 03:10:00 PM EDT [place] ([facility]) Name Value Range Interpretation Code Description Data Claudette rce(s) Supporting Document(s) Cholesterol [Mass/volume] in Serum or Plasma 192 mg/dL <200 Cholesterol, Total [place] ([facility]) Cholesterol in HDL [Mass/volume] in Serum or Plasma 34 mg/dL > or = 40 Below low normal HDL Cholesterol [facility] ([facility]) Triglyceride [Mass/volume] in Serum or Plasma 263 mg/dL <150 Above high normal Triglycerides [facility] ([facility]) Cholesterol non HDL [Mass/volume] in Serum or Plasma 158 mg/dL_( calc) <130 Above high normal Non HDL Cholesterol [facility] ([facility]) Cholesterol.total/Cholesterol in HDL [Mass Ratio] in Serum o r Plasma 5.6 (calc) <5.0 Above high normal Chol/hdlc Ratio [facility] ([facility]) Cholesterol in LDL [Mass/volume] in Serum or Plasma by calculation 120 mg/dL_(calc) Above high normal LDL-cholesterol [place] ([facility]) ID Date Data Source [id number] 12/15/2020 03:10:00 PM EDT [place] ([facility]) Name Value Range Interpretation Code Description Data Claudette rce(s) Supporting Document(s) Reagin Ab [Presence] in Serum by RPR non-reactive non-reactive RPR (DX) W/refl Titer and Confirmatory Testing [facility]) ID Date Data Source [id number] 12/15/2020 03:10:00 PM EDT [facility]) Name Value Range Interpretation Code Description Data Claudette rce(s) Supporting Document(s) Chlamydia trachomatis rRNA [Presence] in Unspecified specimen by Probe and target amplification method not detected not detected Chla mydia Trachomatis RNA, Tma, Urogenital [place] ([facility]) Neisseria gonorrhoeae rRNA [Presence] in Unspecified specimen by Probe and target amplification method not detected not detected Neis seria Gonorrhoeae RNA, Tma, Urogenital [facility] ([facility]) comment Comment [facility] ([facility]) ID Date Data Source [id number] 12/15/2020 03:10:00 PM EDT [place] ([facility]) Name Value Range Interpretation Code Description Data Claudette rce(s) Supporting Document(s) Hemoglobin A1c/Hemoglobin.total in Blood 5.6 %_of_total_HGB <5.7 Hemoglobin a1C [place] ([facility]) ID Date Data Source [id number] 12/15/2020 03:10:00 PM EDT [place] ([facility]) Name Value Range Interpretation Code Description Data Claudette rce(s) Supporting Document(s) Calcidiol [Mass/volume] in Serum or Plasma 27 NG/mL 30-100 Below low normal Vitamin D,25-Oh,total,ia [facility]) ID Date Data Source [id number] 12/15/2020 03:10:00 PM EDT [facility]) Name Value Range Interpretation Code Description Data Claudette rce(s) Supporting Document(s) Hepatitis C virus Ab [Presence] in Serum or Plasma by Immuno assay non-reactive non-reactive Hepatitis C Antibody [facility] ([facility]) Hepatitis C virus Ab Signal/Cutoff in Serum or Plasma by Immunoassa y <1.00 Index [place] ([facility]) ID Date Data Source [id number] 12/15/2020 03:10:00 PM EDT [facility]) Name Value Range Interpretation Code Description Data Claudette rce(s) Supporting Document(s) Urea nitrogen [Mass/volume] in Serum or Plasma 9 mg/dL 7-25 Urea Nitrogen (BUN) [place] ([facility]) Glucose [Mass/volume] in Serum or Plasma 100 mg/dL 65-99 Above high normal Glucose [facility] ([facility]) Urea nitrogen/Creatinine [Mass Ratio] in Serum or Plasma not applic able 6-22 BUN/creatinine Ratio [facility] ([facility]) Glomerular filtration rate/1.73 sq M.pre dicted among non-blacks [Volume Rate/Area] in Serum, Plasma or Blood by Creatinine-based formula (CKD-EPI) 83 mL/min/1.73m2 > or = 60 eGFR Non-afr. Japanese [facility] ([facility]) Creatinine [Mass/volume] in Serum or Plasma 1.00 mg/dL 0.70-1.33 Creatinine [facility] ([facility]) Glomerular filtration rate/1.73 sq M.pre dicted among blacks [Volume Rate/Area] in Serum, Plasma or Blood by Creatinine-based formula (CKD-EPI) 96 mL/min/1.73m2 > or = 60 eGFR [facility] ([facility]) Chloride [Moles/volume] in Serum or Plasma 100 mmol/L 98-110 Chloride [place] ([facility]) Potassium [Moles/volume] in Serum or Plasma 4.1 mmol/L 3.5-5.3 Potassium [facility] ([facility]) Sodium [Moles/volume] in Serum or Plasma 138 mmol/L 135-146 Sodium [place] ([facility]) Calcium [Mass/volume] in Serum or Plasma 9.8 mg/dL 8.6-10.3 Calcium [place] ([facility]) Albumin [Mass/volume] in Serum or Plasma 4.6 g/dL 3.6-5.1 Albumin [place] ([facility]) Carbon dioxide, total [Moles/volume] in Serum or Plasma 26 mmol/L 20-32 Carbon Dioxide [facility] ([facility]) Protein [Mass/volume] in Serum or Plasma 7.7 g/dL 6.1-8.1 Protein, Total [facility]) Bilirubin.total [Mass/volume] in Serum or Plasma 0.8 mg/dL 0.2-1 .2 Bilirubin, Total [place] ([facility]) Globulin [Mass/volume] in Serum by calculation 3.1 g/dL_(calc) 1.9- 3.7 Globulin [place] ([facility]) Alkaline phosphatase [Enzymatic activity/volume] in Serum or Plasma 82 U/L 35-144 Alkaline Phosphatase [place] ([facility]) Albumin/Globulin [Mass Ratio] in Serum or Plasma 1.5 (calc) 1.0-2 .5 Albumin/globulin Ratio [facility] ([facility]) Alanine aminotransferase [Enzymatic activity/volume] in Seru m or Plasma 30 U/L 9-46 Alt [facility] ([facility]) Aspartate aminotransferase [Enzymatic activity/volume] in Serum or Plasma 30 U/L 10-35 Ast [facility] ([facility]) ID Date Data Source [id number] 12/15/2020 03:10:00 PM EDT [facility]) Name Value Range Interpretation Code Description Data Claudette rce(s) Supporting Document(s) HIV 1+2 Ab+HIV1 p24 Ag [Presence] in Serum or Plasma b y Immunoassay non-reactive non-reactive HIV Ag/Ab, 4TH Gen [facility]) ID Date Data Source [id number] 12/15/2020 03:10:00 PM EDT [facility]) Name Value Range Interpretation Code Description Data Claudette rce(s) Supporting Document(s) Triiodothyronine resin uptake (T3RU) in Serum or Plasma 26 % 22 -35 T3 Uptake [place] ([facility]) Thyroxine (T4) free index in Serum or Plasma by calculation 1.4-3.8 Free T4 Index (T7) [facility] ([facility]) Thyroxine (T4) [Mass/volume] in Serum or Plasma 5.6 mcg/dL 4.9-10 .5 T4 (Thyroxine), Total [facility] ([facility]) Thyrotropin [Units/volume] in Serum or Plasma 6.70 mIU/L 0. 40-4.50 Above high normal Tsh [place] ([facility]) ID Date Data Source [id number] 12/15/2020 03:10:00 PM EDT [facility]) Name Value Range Interpretation Code Description Data Claudette rce(s) Supporting Document(s) Cholesterol [Mass/volume] in Serum or Plasma 192 mg/dL <200 Cholesterol, Total [facility] ([facility]) Cholesterol in LDL [Mass/volume] in Serum or Plasma by calculation 120 mg/dL_(calc) Above high normal LDL-cholesterol [facility] ([facility]) Triglyceride [Mass/volume] in Serum or Plasma 263 mg/dL <150 Above high normal Triglycerides [facility] ([facility]) Cholesterol in HDL [Mass/volume] in Serum or Plasma 34 mg/dL > or = 40 Below low normal HDL Cholesterol [facility] ([facility]) Cholesterol.total/Cholesterol in HDL [Mass Ratio] in Serum o r Plasma 5.6 (calc) <5.0 Above high normal Chol/hdlc Ratio [facility] ([facility]) Cholesterol non HDL [Mass/volume] in Serum or Plasma 158 mg/dL_( calc) <130 Above high normal Non HDL Cholesterol [facility] ([facility]) ID Date Data Source [id number] 12/15/2020 03:10:00 PM EDT [place] ([facility]) Name Value Range Interpretation Code Description Data Claudette rce(s) Supporting Document(s) Reagin Ab [Presence] in Serum by RPR non-reactive non-reactive RPR (DX) W/refl Titer and Confirmatory Testing [place] ([facility]) ID Date Data Source [id number] 12/15/2020 03:10:00 PM EDT [facility]) Name Value Range Interpretation Code Description Data Claudette rce(s) Supporting Document(s) Chlamydia trachomatis rRNA [Presence] in Unspecified specimen by Probe and target amplification method not detected not detected Chla mydia Trachomatis RNA, Tma, Urogenital [place] ([facility]) comment Comment [place] ([facility]) Neisseria gonorrhoeae rRNA [Presence] in Unspecified specimen by Probe and target amplification method not detected not detected Neis seria Gonorrhoeae RNA, Tma, Urogenital [place] ([facility]) ID Date Data Source [id number] 12/15/2020 03:10:00 PM EDT [facility]) Name Value Range Interpretation Code Description Data Claudette rce(s) Supporting Document(s) Hemoglobin A1c/Hemoglobin.total in Blood 5.6 %_of_total_HGB <5.7 Hemoglobin a1C [facility]) ID Date Data Source [id number] 12/15/2020 03:10:00 PM EDT [facility]) Name Value Range Interpretation Code Description Data Claudette rce(s) Supporting Document(s) Calcidiol [Mass/volume] in Serum or Plasma 27 NG/mL 30-100 Below low normal Vitamin D,25-Oh,total,ia [facility]) ID Date Data Source [id number] 12/15/2020 03:10:00 PM EDT [facility]) Name Value Range Interpretation Code Description Data Claudette rce(s) Supporting Document(s) Hepatitis C virus Ab [Presence] in Serum or Plasma by Immuno assay non-reactive non-reactive Hepatitis C Antibody [facility] ([facility]) Hepatitis C virus Ab Signal/Cutoff in Serum or Plasma by Immunoassa y <1.00 Index [facility]) ID Date Data Source [id number] 12/15/2020 03:10:00 PM EDT [facility]) Name Value Range Interpretation Code Description Data Claudette rce(s) Supporting Document(s) Glucose [Mass/volume] in Serum or Plasma 100 mg/dL 65-99 Above high normal Glucose [facility] ([facility]) Urea nitrogen/Creatinine [Mass Ratio] in Serum or Plasma not applic able 6-22 BUN/creatinine Ratio [place] ([facility]) Glomerular filtration rate/1.73 sq M.pre dicted among non-blacks [Volume Rate/Area] in Serum, Plasma or Blood by Creatinine-based formula (CKD-EPI) 83 mL/min/1.73m2 > or = 60 eGFR Non-afr. Japanese [facility] ([facility]) Creatinine [Mass/volume] in Serum or Plasma 1.00 mg/dL 0.70-1.33 Creatinine [facility] ([facility]) Urea nitrogen [Mass/volume] in Serum or Plasma 9 mg/dL 7-25 Urea Nitrogen (BUN) [facility] ([facility]) Glomerular filtration rate/1.73 sq M.pre dicted among blacks [Volume Rate/Area] in Serum, Plasma or Blood by Creatinine-based formula (CKD-EPI) 96 mL/min/1.73m2 > or = 60 eGFR [facility] ([facility]) Chloride [Moles/volume] in Serum or Plasma 100 mmol/L 98-110 Chloride [facility] ([facility]) Potassium [Moles/volume] in Serum or Plasma 4.1 mmol/L 3.5-5.3 Potassium [facility] ([facility]) Carbon dioxide, total [Moles/volume] in Serum or Plasma 26 mmol/L 20-32 Carbon Dioxide [facility] ([facility]) Sodium [Moles/volume] in Serum or Plasma 138 mmol/L 135-146 Sodium [facility] ([facility]) Protein [Mass/volume] in Serum or Plasma 7.7 g/dL 6.1-8.1 Protein, Total [facility] ([facility]) Globulin [Mass/volume] in Serum by calculation 3.1 g/dL_(calc) 1.9- 3.7 Globulin [facility] ([facility]) Calcium [Mass/volume] in Serum or Plasma 9.8 mg/dL 8.6-10.3 Calcium [facility] ([facility]) Albumin [Mass/volume] in Serum or Plasma 4.6 g/dL 3.6-5.1 Albumin [facility] ([facility]) Alkaline phosphatase [Enzymatic activity/volume] in Serum or Plasma 82 U/L 35-144 Alkaline Phosphatase [facility] ([facility]) Albumin/Globulin [Mass Ratio] in Serum or Plasma 1.5 (calc) 1.0-2 .5 Albumin/globulin Ratio [facility] ([facility]) Bilirubin.total [Mass/volume] in Serum or Plasma 0.8 mg/dL 0.2-1 .2 Bilirubin, Total [facility] ([facility]) Alanine aminotransferase [Enzymatic activity/volume] in Seru m or Plasma 30 U/L 9-46 Alt [facility] ([facility]) Aspartate aminotransferase [Enzymatic activity/volume] in Serum or Plasma 30 U/L 10-35 Ast [facility] ([facility]) ID Date Data Source [id number] 12/15/2020 03:10:00 PM EDT [place] ([facility]) Name Value Range Interpretation Code Description Data Claudette rce(s) Supporting Document(s) HIV 1+2 Ab+HIV1 p24 Ag [Presence] in Serum or Plasma b y Immunoassay non-reactive non-reactive HIV Ag/Ab, 4TH Gen [place] ([facility]) ID Date Data Source [id number] 12/15/2020 03:10:00 PM EDT [place] ([facility]) Name Value Range Interpretation Code Description Data Claudette rce(s) Supporting Document(s) Triiodothyronine resin uptake (T3RU) in Serum or Plasma 26 % 22 -35 T3 Uptake [facility] ([facility]) Thyroxine (T4) [Mass/volume] in Serum or Plasma 5.6 mcg/dL 4.9-10 .5 T4 (Thyroxine), Total [place] ([facility]) Thyroxine (T4) free index in Serum or Plasma by calculation 1.4-3.8 Free T4 Index (T7) [place] ([facility]) Thyrotropin [Units/volume] in Serum or Plasma 6.70 mIU/L 0. 40-4.50 Above high normal Tsh [place] ([facility]) ID Date Data Source [id number] 12/15/2020 03:10:00 PM EDT [facility]) Name Value Range Interpretation Code Description Data Claudette rce(s) Supporting Document(s) Cholesterol [Mass/volume] in Serum or Plasma 192 mg/dL <200 Cholesterol, Total [facility] ([facility]) Cholesterol in HDL [Mass/volume] in Serum or Plasma 34 mg/dL > or = 40 Below low normal HDL Cholesterol [place] ([facility]) Triglyceride [Mass/volume] in Serum or Plasma 263 mg/dL <150 Above high normal Triglycerides [facility] ([facility]) Cholesterol non HDL [Mass/volume] in Serum or Plasma 158 mg/dL_( calc) <130 Above high normal Non HDL Cholesterol [facility] ([facility]) Cholesterol.total/Cholesterol in HDL [Mass Ratio] in Serum o r Plasma 5.6 (calc) <5.0 Above high normal Chol/hdlc Ratio [facility] ([facility]) Cholesterol in LDL [Mass/volume] in Serum or Plasma by calculation 120 mg/dL_(calc) Above high normal LDL-cholesterol [place] ([facility]) ID Date Data Source [id number] 12/15/2020 03:10:00 PM EDT [facility]) Name Value Range Interpretation Code Description Data Claudette rce(s) Supporting Document(s) Reagin Ab [Presence] in Serum by RPR non-reactive non-reactive RPR (DX) W/refl Titer and Confirmatory Testing [facility]) ID Date Data Source [id number] 12/15/2020 03:10:00 PM EDT [facility]) Name Value Range Interpretation Code Description Data Claudette rce(s) Supporting Document(s) Chlamydia trachomatis rRNA [Presence] in Unspecified specimen by Probe and target amplification method not detected not detected Chla mydia Trachomatis RNA, Tma, Urogenital [facility] ([facility]) Neisseria gonorrhoeae rRNA [Presence] in Unspecified specimen by Probe and target amplification method not detected not detected Neis seria Gonorrhoeae RNA, Tma, Urogenital [place] ([facility]) comment Comment [place] ([facility]) ID Date Data Source [id number] 12/15/2020 03:10:00 PM EDT [facility]) Name Value Range Interpretation Code Description Data Claudette rce(s) Supporting Document(s) Hemoglobin A1c/Hemoglobin.total in Blood 5.6 %_of_total_HGB <5.7 Hemoglobin a1C [facility]) ID Date Data Source [id number] 12/15/2020 03:10:00 PM EDT [facility]) Name Value Range Interpretation Code Description Data Claudette rce(s) Supporting Document(s) Calcidiol [Mass/volume] in Serum or Plasma 27 NG/mL 30-100 Below low normal Vitamin D,25-Oh,total,ia [facility]) ID Date Data Source [id number] 12/15/2020 03:10:00 PM EDT [facility]) Name Value Range Interpretation Code Description Data Claudette rce(s) Supporting Document(s) Hepatitis C virus Ab [Presence] in Serum or Plasma by Immuno assay non-reactive non-reactive Hepatitis C Antibody [facility]) Hepatitis C virus Ab Signal/Cutoff in Serum or Plasma by Immunoassa y <1.00 Index [facility]) ID Date Data Source [id number] 12/15/2020 03:10:00 PM EDT [facility]) Name Value Range Interpretation Code Description Data Claudette rce(s) Supporting Document(s) Glucose [Mass/volume] in Serum or Plasma 100 mg/dL 65-99 Above high normal Glucose [place] ([facility]) Glomerular filtration rate/1.73 sq M.pre dicted among non-blacks [Volume Rate/Area] in Serum, Plasma or Blood by Creatinine-based formula (CKD-EPI) 83 mL/min/1.73m2 > or = 60 eGFR Non-afr. Japanese [facility] ([facility]) Creatinine [Mass/volume] in Serum or Plasma 1.00 mg/dL 0.70-1.33 Creatinine [facility]) Urea nitrogen [Mass/volume] in Serum or Plasma 9 mg/dL 7-25 Urea Nitrogen (BUN) [facility]) Glomerular filtration rate/1.73 sq M.pre dicted among blacks [Volume Rate/Area] in Serum, Plasma or Blood by Creatinine-based formula (CKD-EPI) 96 mL/min/1.73m2 > or = 60 eGFR [facility] ([facility]) Urea nitrogen/Creatinine [Mass Ratio] in Serum or Plasma not applic able 6-22 BUN/creatinine Ratio [facility] ([facility]) Sodium [Moles/volume] in Serum or Plasma 138 mmol/L 135-146 Sodium [facility] ([facility]) Potassium [Moles/volume] in Serum or Plasma 4.1 mmol/L 3.5-5.3 Potassium [facility] ([facility]) Chloride [Moles/volume] in Serum or Plasma 100 mmol/L 98-110 Chloride [facility] ([facility]) Carbon dioxide, total [Moles/volume] in Serum or Plasma 26 mmol/L 20-32 Carbon Dioxide [place] ([facility]) Calcium [Mass/volume] in Serum or Plasma 9.8 mg/dL 8.6-10.3 Calcium [facility] ([facility]) Globulin [Mass/volume] in Serum by calculation 3.1 g/dL_(calc) 1.9- 3.7 Globulin [facility] ([facility]) Albumin [Mass/volume] in Serum or Plasma 4.6 g/dL 3.6-5.1 Albumin [place] ([facility]) Protein [Mass/volume] in Serum or Plasma 7.7 g/dL 6.1-8.1 Protein, Total [facility] ([facility]) Albumin/Globulin [Mass Ratio] in Serum or Plasma 1.5 (calc) 1.0-2 .5 Albumin/globulin Ratio [facility] ([facility]) Aspartate aminotransferase [Enzymatic activity/volume] in Serum or Plasma 30 U/L 10-35 Ast [facility] ([facility]) Alkaline phosphatase [Enzymatic activity/volume] in Serum or Plasma 82 U/L 35-144 Alkaline Phosphatase [facility] ([facility]) Bilirubin.total [Mass/volume] in Serum or Plasma 0.8 mg/dL 0.2-1 .2 Bilirubin, Total [facility] ([facility]) Alanine aminotransferase [Enzymatic activity/volume] in Seru m or Plasma 30 U/L 9-46 Alt [facility] ([facility]) ID Date Data Source [id number] 12/15/2020 03:10:00 PM EDT [facility]) Name Value Range Interpretation Code Description Data Claudette rce(s) Supporting Document(s) HIV 1+2 Ab+HIV1 p24 Ag [Presence] in Serum or Plasma b y Immunoassay non-reactive non-reactive HIV Ag/Ab, 4TH Gen [facility]) ID Date Data Source [id number] 12/15/2020 03:10:00 PM EDT [facility]) Name Value Range Interpretation Code Description Data Claudette rce(s) Supporting Document(s) Thyroxine (T4) free index in Serum or Plasma by calculation 1.4-3.8 Free T4 Index (T7) [facility]) Triiodothyronine resin uptake (T3RU) in Serum or Plasma 26 % 22 -35 T3 Uptake [place] ([facility]) Thyroxine (T4) [Mass/volume] in Serum or Plasma 5.6 mcg/dL 4.9-10 .5 T4 (Thyroxine), Total [facility]) Thyrotropin [Units/volume] in Serum or Plasma 6.70 mIU/L 0. 40-4.50 Above high normal Tsh [facility]) ID Date Data Source [id number] 12/15/2020 03:10:00 PM EDT [facility]) Name Value Range Interpretation Code Description Data Claudette rce(s) Supporting Document(s) Cholesterol [Mass/volume] in Serum or Plasma 192 mg/dL <200 Cholesterol, Total [facility] ([facility]) Cholesterol in HDL [Mass/volume] in Serum or Plasma 34 mg/dL > or = 40 Below low normal HDL Cholesterol [facility] ([facility]) Triglyceride [Mass/volume] in Serum or Plasma 263 mg/dL <150 Above high normal Triglycerides [place] ([facility]) Cholesterol.total/Cholesterol in HDL [Mass Ratio] in Serum o r Plasma 5.6 (calc) <5.0 Above high normal Chol/hdlc Ratio [facility] ([facility]) Cholesterol non HDL [Mass/volume] in Serum or Plasma 158 mg/dL_( calc) <130 Above high normal Non HDL Cholesterol [facility] ([facility]) Cholesterol in LDL [Mass/volume] in Serum or Plasma by calculation 120 mg/dL_(calc) Above high normal LDL-cholesterol [facility] ([facility]) ID Date Data Source [id number] 12/15/2020 03:08:00 PM EDT [facility] ([facility]) Name Value Range Interpretation Code Description Data Claudette rce(s) Supporting Document(s) bilirubin neg Bilirubin [facility] ([facility]) blood +- Blood [facility] ([facility]) glucose neg Glucose [facility] ([facility]) leukocytes neg Leukocytes [facility] ([facility]) ketone neg Ketone [facility] ([facility]) pH Ph [facility] ([facility]) protein neg Protein [facility] ([facility]) specific gravity Specific [place] [facility] ([facility]) nitrite neg Nitrite [facility] ([facility]) urobilinogen Urobilinogen [facility] ([facility]) ID Date Data Source [id number] 12/15/2020 03:08:00 PM EDT OMAR ([facility]) Name Value Range Interpretation Code Description Data Claudette rce(s) Supporting Document(s) leukocytes neg Leukocytes OMAR ([facility]) bilirubin neg Bilirubin OMAR ([facility]) blood +- Blood OMAR ([facility]) glucose neg Glucose OMAR ([facility]) ketone neg Ketone OMAR ([facility]) nitrite neg Nitrite OMAR ([facility]) urobilinogen Urobilinogen OMAR ([facility]) pH Ph OMAR ([facility]) protein neg Protein OMAR ([facility]) specific gravity Specific [place] AT PERI ([facility]) ID Date Data Source [id number] 12/15/2020 03:08:00 PM EDT OMAR ([facility]) Name Value Range Interpretation Code Description Data Claudette rce(s) Supporting Document(s) blood +- Blood OMAR ([facility]) bilirubin neg Bilirubin OMAR ([facility]) ketone neg Ketone OMAR ([facility]) leukocytes neg Leukocytes OMAR ([facility]) pH Ph OMAR ([facility]) glucose neg Glucose OMAR ([facility]) nitrite neg Nitrite OMAR ([facility]) protein neg Protein OMAR ([facility]) specific gravity Specific [place] AT PERI ([facility]) urobilinogen Urobilinogen OMAR ([facility]) ID Date Data Source [id number] 12/15/2020 03:08:00 PM EDT OMAR ([facility]) Name Value Range Interpretation Code Description Data Claudette rce(s) Supporting Document(s) blood +- Blood OMAR ([facility]) glucose neg Glucose OMAR ([facility]) bilirubin neg Bilirubin OMAR ([facility]) leukocytes neg Leukocytes OMAR ([facility]) ketone neg Ketone OAMR ([facility]) nitrite neg Nitrite OMAR ([facility]) pH Ph OMAR ([facility]) specific gravity Specific [place] AT PERI ([facility]) urobilinogen Urobilinogen OMAR ([facility]) protein neg Protein OMAR ([facility]) ID Date Data Source [id number] 12/15/2020 03:08:00 PM EDT OMAR ([facility]) Name Value Range Interpretation Code Description Data Claudette rce(s) Supporting Document(s) bilirubin neg Bilirubin OMAR ([facility]) glucose neg Glucose OMAR ([facility]) blood +- Blood OMAR ([facility]) leukocytes neg Leukocytes OMAR ([facility]) ketone neg Ketone OMAR ([facility]) nitrite neg Nitrite OMAR ([facility]) pH Ph OMAR ([facility]) protein neg Protein OMAR ([facility]) specific gravity Specific [place] AT PERI ([facility]) urobilinogen Urobilinogen OMAR ([facility]) Procedure Social History No Information Vital Signs ID Date Data Source UNK Name Value Range Interpretation Code Description Data Source(s) Diastolic blood pressure 72 mm[Hg] 72 mm[Hg] OMAR ([facility]) Body height 68 [in_i] 68 [in_i] OMAR ([facility]) Body mass index (BMI) [Ratio] 32.4 kg/m2 32.4 k g/m2 OMAR ([facility]) Systolic blood pressure 110 mm[Hg] 110 mm[Hg] A THENA ([facility]) Body weight 3412 [oz_av] 3412 [oz_av] OMAR ([facility]) Diastolic blood pressure 72 mm[Hg] 72 mm[Hg] OMAR ([facility]) Body height 68 [in_i] 68 [in_i] OMAR ([facility]) Body mass index (BMI) [Ratio] 32.4 kg/m2 32.4 k g/m2 OMAR ([facility]) Systolic blood pressure 110 mm[Hg] 110 mm[Hg] A THENA ([facility]) Body weight 3412 [oz_av] 3412 [oz_av] OMAR ([facility]) Systolic blood pressure 123 mm[Hg] 123 mm[Hg] M EDENT ([facility], ) Diastolic blood pressure 83 mm[Hg] 83 mm[Hg] MEDENT ([facility], ) Body temperature 98.3 [degF] 98.3 [degF] MEDENT ([facility], ) Body height 68 [in_i] 68 [in_i] MEDIVETTE ([facility], ) 5'8" Body weight 216.00 [lb_av] 216.00 [lb_av] MEDEN T ([facility]) Body mass index (BMI) [Ratio] 32.8 kg/m2 32.8 k g/m2 MEDENT ([facility]) [place] body weight 154 [lb_av] 154 [lb_av] MEDEN T ([facility]) Body weight 97.978 kg 97.978 kg [facility] ([facility]) Body surface area Derived from formula 2.11 m2 2.11 m2 [facility] ([facility]) Body surface area Derived from formula 2.11 m2 2.11 m2 [facility] ([facility]) Systolic blood pressure 108 mm[Hg] 108 mm[Hg] M EDENT ([facility]) Diastolic blood pressure 70 mm[Hg] 70 mm[Hg] [facility] ([facility]) Body temperature 98.3 [degF] 98.3 [degF] [facility] ([facility]) Body height 68 [in_i] 68 [in_i] [facility] ([facility]) 5'8" Body weight 216.50 [lb_av] 216.50 [lb_av] MEDEN T ([facility]) Body mass index (BMI) [Ratio] 32.9 kg/m2 32.9 k g/m2 [facility] ([facility]) [place] body weight 154 [lb_av] 154 [lb_av] MEDEN T ([facility]) Body weight 98.204 kg 98.204 kg [facility] ([facility]) Diastolic blood pressure 81 mm[Hg] 81 mm[Hg] OMAR ([facility]) Body height 68 [in_i] 68 [in_i] OMAR ([facility]) Body mass index (BMI) [Ratio] 32.6 kg/m2 32.6 k g/m2 OMAR ([facility]) Systolic blood pressure 123 mm[Hg] 123 mm[Hg] A THENA ([facility]) Body weight 3428 [oz_av] 3428 [oz_av] OMAR ([facility]) Diastolic blood pressure 81 mm[Hg] 81 mm[Hg] OMAR ([facility]) Body height 68 [in_i] 68 [in_i] OMAR ([facility]) Body mass index (BMI) [Ratio] 32.6 kg/m2 32.6 k g/m2 OMAR ([facility]) Systolic blood pressure 123 mm[Hg] 123 mm[Hg] A THENA ([facility]) Body weight 3428 [oz_av] 3428 [oz_av] OMAR ([facility]) Diastolic blood pressure 81 mm[Hg] 81 mm[Hg] OMAR ([facility]) Body height 68 [in_i] 68 [in_i] OMAR ([facility]) Body mass index (BMI) [Ratio] 32.6 kg/m2 32.6 k g/m2 OMAR ([facility]) Systolic blood pressure 123 mm[Hg] 123 mm[Hg] A THENA ([facility]) Body weight 3428 [oz_av] 3428 [oz_av] OMAR ([facility]) Diastolic blood pressure 101 mm[Hg] 101 mm[Hg] OMAR ([facility]) Body height 68 [in_i] 68 [in_i] OMAR ([facility]) Body mass index (BMI) [Ratio] 33.3 kg/m2 33.3 k g/m2 OMAR ([facility]) Systolic blood pressure 171 mm[Hg] 171 mm[Hg] A THENA ([facility]) Body weight 3504 [oz_av] 3504 [oz_av] OMAR ([facility]) Diastolic blood pressure 101 mm[Hg] 101 mm[Hg] OMAR ([facility]) Body height 68 [in_i] 68 [in_i] OMAR ([facility]) Body mass index (BMI) [Ratio] 33.3 kg/m2 33.3 k g/m2 OMAR ([facility]) Systolic blood pressure 171 mm[Hg] 171 mm[Hg] A THENA ([facility]) Body weight 3504 [oz_av] 3504 [oz_av] OMAR ([facility]) Diastolic blood pressure 101 mm[Hg] 101 mm[Hg] OMAR ([facility]) Body height 68 [in_i] 68 [in_i] OMAR ([facility]) Body mass index (BMI) [Ratio] 33.3 kg/m2 33.3 k g/m2 OMAR ([facility]) Systolic blood pressure 171 mm[Hg] 171 mm[Hg] A PORFIRIOA ([facility]) Body weight 3504 [oz_av] 3504 [oz_av] OMAR ([facility]) Diastolic blood pressure 101 mm[Hg] 101 mm[Hg] OMAR ([facility]) Body height 68 [in_i] 68 [in_i] OMAR ([facility]) Body mass index (BMI) [Ratio] 33.3 kg/m2 33.3 k g/m2 OMAR ([facility]) Systolic blood pressure 171 mm[Hg] 171 mm[Hg] A PORFIRIOA ([facility]) Body weight 3504 [oz_av] 3504 [oz_av] OMAR ([facility]) Body height 68 [in_i] 68 [in_i] [facility] ([facility], ) 5'8" Body weight 101.323 kg 101.323 kg [facility] ([facility], ) Body weight 223.38 [lb_av] 223.38 [lb_av] MEDEN T ([facility], ) Body mass index (BMI) [Ratio] 34.0 kg/m2 34.0 k g/m2 [facility] ([facility], ) [place] body weight 154 [lb_av] 154 [lb_av] MEDEN T ([facility], ) Body surface area Derived from formula 2.14 m2 2.14 m2 [facility] ([facility], ) Diastolic blood pressure 96 mm[Hg] 96 mm[Hg] [facility] ([facility], ) Heart rate 98 /min 98 /min MEDIVETTE ([facility], ) Systolic blood pressure 166 mm[Hg] 166 mm[Hg] Shankar GABRIEL ([facility], ) Body height 68 [in_i] 68 [in_i] [facility] ([facility], ) 5'8" Body weight 223.38 [lb_av] 223.38 [lb_av] [facility] T ([facility]) Body mass index (BMI) [Ratio] 34.0 kg/m2 34.0 k g/m2 [facility] ([facility]) [place] body weight 154 [lb_av] 154 [lb_av] [facility] T ([facility]) Body weight 101.323 kg 101.323 kg [facility] ([facility]) Body surface area Derived from formula 2.14 m2 2.14 m2 [facility] ([facility]) Diastolic blood pressure 100 mm[Hg] 100 mm[Hg] OMAR ([facility]) Diastolic blood pressure 99 mm[Hg] 99 mm[Hg] OMAR ([facility]) Body height 68 [in_i] 68 [in_i] [place] ([facility]) Body mass index (BMI) [Ratio] 33.5 kg/m2 33.5 k g/m2 OMAR ([facility]) Systolic blood pressure 157 mm[Hg] 157 mm[Hg] A [facility] ([facility]) Systolic blood pressure 171 mm[Hg] 171 mm[Hg] A [facility] ([facility]) Body weight 3520 [oz_av] 3520 [oz_av] OMAR ([facility]) Diastolic blood pressure 100 mm[Hg] 100 mm[Hg] OMAR ([facility]) Diastolic blood pressure 99 mm[Hg] 99 mm[Hg] OMAR ([facility]) Body height 68 [in_i] 68 [in_i] OMAR ([facility]) Body mass index (BMI) [Ratio] 33.5 kg/m2 33.5 k g/m2 OMAR ([facility]) Systolic blood pressure 157 mm[Hg] 157 mm[Hg] [facility]) Systolic blood pressure 171 mm[Hg] 171 mm[Hg] A [facility] ([facility]) Body weight 3520 [oz_av] 3520 [oz_av] OMAR ([facility]) Diastolic blood pressure 100 mm[Hg] 100 mm[Hg] OMAR ([facility]) Diastolic blood pressure 99 mm[Hg] 99 mm[Hg] OMAR ([facility]) Body height 68 [in_i] 68 [in_i] OMAR ([facility]) Body mass index (BMI) [Ratio] 33.5 kg/m2 33.5 k g/m2 OMAR ([facility]) Systolic blood pressure 157 mm[Hg] 157 mm[Hg] A THENA ([facility]) Systolic blood pressure 171 mm[Hg] 171 mm[Hg] [facility]) Body weight 3520 [oz_av] 3520 [oz_av] OMAR ([facility]) Diastolic blood pressure 100 mm[Hg] 100 mm[Hg] OMAR ([facility]) Diastolic blood pressure 99 mm[Hg] 99 mm[Hg] OMAR ([facility]) Body height 68 [in_i] 68 [in_i] OMAR ([facility]) Body mass index (BMI) [Ratio] 33.5 kg/m2 33.5 k g/m2 OMAR ([facility]) Systolic blood pressure 157 mm[Hg] 157 mm[Hg] A THENA ([facility]) Systolic blood pressure 171 mm[Hg] 171 mm[Hg] [facility]) Body weight 3520 [oz_av] 3520 [oz_av] OMAR ([facility]) Diastolic blood pressure 100 mm[Hg] 100 mm[Hg] OMAR ([facility]) Diastolic blood pressure 99 mm[Hg] 99 mm[Hg] OMAR ([facility]) Body height 68 [in_i] 68 [in_i] OMAR ([facility]) Body mass index (BMI) [Ratio] 33.5 kg/m2 33.5 k g/m2 OMAR ([facility]) Systolic blood pressure 157 mm[Hg] 157 mm[Hg] A THENA ([facility]) Systolic blood pressure 171 mm[Hg] 171 mm[Hg] A THENA ([facility]) Body weight 3520 [oz_av] 3520 [oz_av] OMAR ([facility])
--- OUTSIDE RECORDS SUMMARY | 2021-05-10 09:19 | CCD | Continuity of Care Document ---
Author Author Cameron VALERIO MD Organization Unknown Address [address] [facility] [address] [place] [address] Phone [phone] Care Team Providers [employer] Pilot Name Role Phone Olga Berman M.D. AUTM [phone] Problems Active Problems Provider Date Essential hypertension [...] lb BMI (Body Mass Index) 34.0 kg/m2 [place] Body Weight 154 lb Weight 101.323 kg BSA (Body Surface Area) 2.14 m2 Results Test Acquired Date Facility Test Result H/L Range Note Laboratory test finding 03/23/2021 [facility] [address] [place], [place] [id number] [phone] Pathology Request For Service (SEE NOTE) 1 1 FINAL DIAGNOSIS Transverse colon polyp, polypectomy: Tubular adenoma. 03/24/2021 - 1525 CLINICAL DIAGNOSIS Screening 03/24/2021 - 1316 GROSS DIAGNOSIS Received in formalin labeled "transverse colon polyp" and consists of a fragment of tissue, 0.3 x 0.2 x 0.1 cm. All in one. -OA 03/24/2021 - 1316 Signed GABRIEL MÁRQUEZ MD 03/25/2021 0852 Procedures Date Code Description Status 03/23/2021 68631 Colonoscopy W/ Poly Completed Medical Devices Description No Information Available Encounters Description No Information Available Assessments Date Code Description Provider 03/23/2021 Z12.11 Encounter for screening for helen [...] 04/05/2021 10:15 am - PAMELA Cabrera at [facility] 12/30/2020 - Jose Valerio MD* Z12.11 [...] Jose Valerio MD SCHEDULE COLONOSCOPY Scheduled 12/[address] [place], [place] [id number] [phone]
--- OUTSIDE RECORDS SUMMARY | 2021-05-10 09:19 | CCD ---
Author Organization Unknown Address [address] [place] [address] Phone [phone] Care Team Providers Care Supervisor Electronics Processing Name Role Phone ARUNA BERMAN MD 3 [phone] [facility] GENERAL SURGERY 107 [phone] Allergies Code Code System Name Reaction Severity [...] 05/04/2021 Procedures Date Name Performed by 12/15/2020 [facility] [address] [place] [phone] (Work Place) 12/15/2020 XR, Chest, 2 View [facility] [address] [place] [address] (Work Place) 12/15/2020 XR, Tibia + Fibula [facility] [address] [place] [address] (Work Place) Results Lab Results Date Name Specimen Result Interpretation Description Value Range Status Address 03/18/2021 SARS CoV 2 RNA, QL, Nasopharynx NASOPHARYNX No observation recorded. [facility]: 8[address] [facility] 01/21/2021 Thyroid Panel, Serum Blood venous Normal Thyroglobulin Antibodies <1 IU/mL < or = 1 IU/mL Final [facility]: [address] [facility] Blood venous Normal Thyroid Peroxidase Antibo dies 1 IU/mL <9 IU/mL Final [facility] 01/21/2021 Tsh Blood venous Normal Tsh 2.58 mIU/L 0.40-4.50 mIU/L Final [facility]: [address] [facility] 12/15/2020 Lipid Panel, Serum Blood venous Normal Jayne sterol, Total 192 mg/dL <200 mg/dL Final [facility]: [address] [facility] Blood venous Low HDL Cholesterol 34 mg/dL > or = 40 mg/dL Final [facility]: [address] [facility] Blood venous High Triglycerides 263 mg/dL <150 mg/dL Final [facility]: [address] [facility] Blood venous High LDL-cholesterol 120 mg/dL (ca lc) Final [facility]: [address] [facility] Blood venous High Chol/hdlc Ratio 5.6 (calc) <5 .0 (calc) [facility]: [address] [facility] Blood venous High Non HDL Cholesterol 158 mg/dL (calc) <130 mg/dL (calc) Final [facility] gh: [address] [facility] 12/15/2020 TSH, Serum or Plasma Blood venous Normal T3 Uptake 26 % 22-35 % Final [facility]: [address] [facility] Blood venous Normal T4 (Thyroxine), Total 5. 6 mcg/dL 4.9-10.5 mcg/dL Final [facility]: [address] [facility] Blood venous Normal Free T4 Index (T7) 1.5 1.4 -3.8 Final [facility]: [address] [facility] Blood venous High Tsh 6.70 mIU/L 0.40-4.50 mIU /L [facility]: [address] [facility] 12/15/2020 HIV 1+2 Ab + HIV1 P24 Ag, Quantitative I mmunoassay, Serum Blood venous Normal HIV Ag/Ab, 4TH Gen non-reactive non-reactive Fin al [facility]: [address] [facility] 12/15/2020 CMP, Serum or Plasma Blood venous High Glucose 100 mg/dL 65-99 mg/dL Final [facility]: [address] [facility] Blood venous Normal Urea Nitrogen (BUN) 9 mg/dL 7 -25 mg/dL [facility]: [address] [facility] Blood venous Normal Creatinine 1.00 mg/dL 0.70-1. 33 mg/dL [facility]: [address] [facility] Blood venous Normal eGFR Non-afr. Sudanese 8 3 mL/min/1.73m2 > or = 60 mL/min/1.73m2 Final [facility]: [address] [facility] Blood venous Normal eGFR 96 mL/min/1.73m2 > or = 60 mL/min/1.73m2 Final [facility]: [address] [facility] Blood venous BUN/creatinine Ratio not applicable (calc) 6-22 (calc) [facility]: [address] [facility] Blood venous Normal Sodium 138 mmol/L 135-146 mmo l/L [facility]: [address] [facility] Blood venous Normal Potassium 4.1 mmol/L 3.5-5.3 mmol/L [facility]: [address] [facility] Blood venous Normal Chloride 100 mmol/L 98-110 mm ol/L [facility]: [address] [facility] Blood venous Normal Carbon Dioxide 26 mmol/L 20-3 2 mmol/L [facility]: [address] [facility] Blood venous Normal Calcium 9.8 mg/dL 8.6-10.3 mg /dL [facility]: [address] [facility] Blood venous Normal Protein, Total 7.7 g/dL 6.1-8 .1 g/dL [facility]: [address] [facility] Blood venous Normal Albumin 4.6 g/dL 3.6-5.1 g/dL [facility]: [address] [facility] Blood venous Normal Globulin 3.1 g/dL (calc) 1.9- 3.7 g/dL (calc) [facility]: [address] [facility] Blood venous Normal Albumin/globulin Ratio 1 .5 (calc) 1.0-2.5 (calc) [facility]: [address] [facility] Blood venous Normal Bilirubin, Total 0.8 mg/dL 0. 2-1.2 mg/dL Final [facility]: [address] [facility] Blood venous Normal Alkaline Phosphatase 82 U/L 3 5-144 U/L Final [facility]: [address] [facility] Blood venous Normal Ast 30 U/L 10-35 U/L Final [facility]: [address] [facility] Blood venous Normal Alt 30 U/L 9-46 U/L Final [facility]: [address] [facility] 12/15/2020 Hepatitis C Virus Ab, Serum Blood venous Normal Hepatitis C Antibody non-reactive non-reactive Final [facility]: [address] [facility] Blood venous Normal Index 0.01 <1.00 Final [facility]: [address] [facility] 12/15/2020 Vitamin D, 25-Hydroxy, Total, Serum Blood venous Low Vitamin D,25-Oh,total,ia 27 NG/mL 30-100 NG/mL Final [facility]: [address] [facility] 12/15/2020 HbA1C (Hemoglobin a1C), Blood Blood venous Normal Hemoglobin a1C 5.6 % of total HGB <5.7 % of total HGB Final [facility]: [address] [facility] 12/15/2020 CT + NG RNA, PCR, Unspecified Specimen Normal Chlamydia Trachomatis RNA, Tma, Urogenital not detected not detected Final [facility]: [address] [facility] Normal Neisseria Gonorrhoeae RNA, Tma, Urogenital not detected not detected Final [facility] [address] [facility] Comment Final [facility]: [address] [facility] 12/15/2020 RPR (Rapid Plasma Reagin), Serum Blood venous Normal RPR (DX) W/refl Titer and Confirmatory Testing non-reactive non-reactive Final [facility]: [address] [facility] 12/15/2020 Urinalysis, Dipstick, Auto Normal Bilirubin ne g Final [facility] Medical: [address] [facility] Normal Blood +- Final [facility] Medical: [address] [facility] Normal Glucose neg Final Main [facility]: [address] [facility] Normal Ketone neg Final Main [facility] [address] [facility] Normal Leukocytes neg Final Main [facility]: [address] [facility] Normal Nitrite neg Final Main [facility]: [address] [facility] Normal Ph 6.0 Final Main [facility]: [address] [facility] Normal Protein neg Final Main [facility]: [address] [facility] Normal Specific Boyce 1.020 Final Main [facility]: [address] [facility] Normal Urobilinogen 0.2 Final [facility]: [address] [facility] Past Encounters 05/05/2021 Pre-surgery Evaluation; Hyperlipidemia Aruna Berman MD: [address] [place] [phone], Ph. 05/04/2021 Pre-surgery Evaluation; Essential Hypertension; Hyperlipidemia; Vitamin D Deficiency; Administration of Influenza Vaccine Aruna Berman MD: [address] [place] [phone], Ph. 04/04/2021 Body Mass Index 30+ - Obesity; Hyperlipidemia; Essential Hypertension; Vitamin D Deficiency; Immunization Advised Aruna Berman MD: [address] [place] [phone], Ph. 01/21/2021 Hyperlipidemia; Vitamin D Deficiency; Thyroid Function Tests Abnormal; Body Mass Index 30+ - Obesity; Elevated Blood-pressure Reading without Diagnosis of Hypertension; Retained Foreign Body; Chest Wall Pain Aruna Berman MD: [address] [place] [phone], Ph. 12/15/2020 Patient New to Provider; Hyperlipidemia Screening; Endocrine/metabolic Screening; Venereal Disease Screening; Body Mass Index 30+ - Obesity; Elevated Blood-pressure Reading without Diagnosis of Hypertension; Retained Foreign Body; Immunization Due; Screening for Malignant Neoplasm of Colon; Left Inguinal Hernia Aruna Berman MD: [address] [place] [phone], Ph. Social History Tobacco Smoking Status Never Smoker Vaccine List Vaccine Type COVID-19, mRNA, LNP-S, PF, 100 mcg/0.5 m L dose 10/21/2020 11/15/2020 influenza, injectable, quadrivalent, pre servative free 05/04/2021 Tdap .5 mL Plan of Care Reminders Provider Appointments None recorded. Lab None recorded. Referral None recorded. Procedures None recorded. Surgeries None recorded. Imaging None recorded. Vitals 05/04/2021 03:40PM MEDICAL CLEARANCE Height Weight BMI Blood Pressure 68 in 213 lbs 4 oz 32.4 kg/m2 110/72 mm[Hg] 04/04/2021 09:00AM ESTABLISHED [id number] Height Weight BMI Blood Pressure 68 in 214 lbs 4 oz 32.6 kg/m2 123/81 mm[Hg] 01/21/2021 09:40AM ESTABLISHED [id number] Height Weight BMI Blood Pressure 68 in 219 lbs 33.3 kg/m2 171/101 mm[Hg] 12/15/2020 02:20PM NEW PATIENT (14yrs - OLDER) Height Weight BMI Blood Pressure 68 in 219 lbs 16 oz 33.5 kg/m2 (1) 171/99 mm [Hg] (2) 157/100 mm[Hg]
--- OUTSIDE RECORDS SUMMARY | 2021-05-10 09:19 | CCD ---
Author Organization Unknown Address [address] [place] [address] Phone [phone] Care Team Providers Care Wearing Apparel Presser Name Role Phone ARUNA SARMIENTO MD 3 [phone] [facility] GENERAL SURGERY 107 [phone] Allergies Code Code System Name Reaction Severity [...] Hernia Active 01/19/2021 Essential Hypertension Active 04/04/2021 Procedures Date Name Performed by 12/15/2020 Electrocardiogram Main [facility] [address] [place] [phone] (Work Place) 12/15/2020 XR, Chest, 2 View [facility] [address] [place] [address] (Work Place) 12/15/2020 XR, Tibia + Fibula [facility] [address] [place] [address] (Work Place) Results Lab Results Date Name Specimen Result Interpretation Description Value Range Status Address 03/18/2021 SARS CoV 2 RNA, QL, Nasopharynx [id number] No observation recorded. [facility]: [address] [facility] 01/21/2021 Thyroid Panel, Serum Blood venous Normal Thyroglobulin Antibodies <1 IU/mL < or = 1 IU/mL Final [facility]: [address] [facility] Blood venous Normal Thyroid Peroxidase Antibo dies 1 IU/mL <9 IU/mL Final [facility]: [address] [facility] 01/21/2021 Tsh Blood venous Normal Tsh 2.58 mIU/L 0.40-4.50 mIU/L Final [facility]: 8[address] [facility] 12/15/2020 Lipid Panel, Serum Blood venous Normal Jayne sterol, Total 192 mg/dL <200 mg/dL Final [facility]: [address] [facility] Blood venous Low HDL Cholesterol 34 mg/dL > or = 40 mg/dL Final [facility]: [address] [facility] Blood venous High Triglycerides 263 mg/dL <150 mg/dL Final [facility]: [address] [facility] Blood venous High LDL-cholesterol 120 mg/dL (ca lc) Final [facility]: [address] [facility] Blood venous High Chol/hdlc Ratio 5.6 (calc) <5 .0 (calc) Final [facility]: [address] [facility] Blood venous High Non HDL Cholesterol 158 mg/dL (calc) <130 mg/dL (calc) Final [facility] gh: [address] [facility] 12/15/2020 TSH, Serum or Plasma Blood venous Normal T3 Uptake 26 % 22-35 % Final [facility]: 875 [facility] Blood venous Normal T4 (Thyroxine), Total 5. 6 mcg/dL 4.9-10.5 mcg/dL Final [facility]: [address] [facility] Blood venous Normal Free T4 Index (T7) 1.5 1.4 -3.8 Final [facility]: [address] [facility] Blood venous High Tsh 6.70 mIU/L 0.40-4.50 mIU /L Final [facility]: [address] [facility] 12/15/2020 HIV 1+2 Ab + HIV1 P24 Ag, Quantitative I mmunoassay, Serum Blood venous Normal HIV Ag/Ab, 4TH Gen non-reactive non-reactive Fin al [facility]: [address] [facility] 12/15/2020 CMP, Serum or Plasma Blood venous High Glucose 100 mg/dL 65-99 mg/dL Final [facility] gh: [address] [facility] Blood venous Normal Urea Nitrogen (BUN) 9 mg/dL 7 -25 mg/dL Final [facility]: [address] [facility] Blood venous Normal Creatinine 1.00 mg/dL 0.70-1. 33 mg/dL [facility]: [address] [facility] Blood venous Normal eGFR Non-afr. Cambodian 8 3 mL/min/1.73m2 > or = 60 mL/min/1.73m2 Final [facility]: [address] [facility] Blood venous Normal eGFR 96 mL/min/1.73m2 > or = 60 mL/min/1.73m2 Final [facility]: [address] [facility] Blood venous BUN/creatinine Ratio not applicable (calc) 6-22 (calc) [facility]: [address] [facility] Blood venous Normal Sodium 138 mmol/L 135-146 mmo l/L [facility]: [address] [facility] Blood venous Normal Potassium 4.1 mmol/L 3.5-5.3 mmol/L [facility]: [address] [facility] Blood venous Normal Chloride 100 mmol/L 98-110 mm ol/L [facility]: [address] [facility] Blood venous Normal Carbon Dioxide 26 mmol/L 20-3 2 mmol/L [facility]: [address] [facility] Blood venous Normal Calcium 9.8 mg/dL 8.6-10.3 mg /dL [facility]: [address] [facility] Blood venous Normal Protein, Total 7.7 g/dL 6.1-8 .1 g/dL [facility]: [address] [facility] Blood venous Normal Albumin 4.6 g/dL 3.6-5.1 g/dL [facility]: [address] [facility] Blood venous Normal Globulin 3.1 g/dL (calc) 1.9- 3.7 g/dL (calc) [facility]: [address] [facility] Blood venous Normal Albumin/globulin Ratio 1 .5 (calc) 1.0-2.5 (calc) [facility]: [address] [facility] Blood venous Normal Bilirubin, Total 0.8 mg/dL 0. 2-1.2 mg/dL Final [facility]: [address] [facility] Blood venous Normal Alkaline Phosphatase 82 U/L 3 5-144 U/L Final [facility]: [address] [facility] Blood venous Normal Ast 30 U/L 10-35 U/L Final [facility]: [address] [facility] Blood venous Normal Alt 30 U/L 9-46 U/L Final [facility]: [address] [facility] 12/15/2020 Hepatitis C Virus Ab, Serum Blood venous Normal Hepatitis C Antibody non-reactive non-reactive Final [facility]: [address] [facility] Blood venous Normal Index 0.01 <1.00 Final [facility]: [address] [facility] 12/15/2020 Vitamin D, 25-Hydroxy, Total, Serum Blood venous Low Vitamin D,25-Oh,total,ia 27 NG/mL 30-100 NG/mL Final [facility]: [address] [facility] 12/15/2020 HbA1C (Hemoglobin a1C), Blood Blood venous Normal Hemoglobin a1C 5.6 % of total HGB <5.7 % of total HGB [facility] [address] [facility] 12/15/2020 CT + NG RNA, PCR, Unspecified Specimen Normal Chlamydia Trachomatis RNA, Tma, Urogenital not detected not detected Final [facility]: [address] [facility] Normal Neisseria Gonorrhoeae RNA, Tma, Urogenital not detected not detected [facility] [address] [facility] Comment Final [facility] [address] [facility] 12/15/2020 RPR (Rapid Plasma Reagin), Serum Blood venous Normal RPR (DX) W/refl Titer and Confirmatory Testing non-reactive non-reactive Final [facility]: [address] [facility] 12/15/2020 Urinalysis, Dipstick, Auto Normal Bilirubin ne g Final [facility] Medical: [address] [facility] Normal Blood +- Final [facility] Medical: [address] [facility] Normal Glucose neg Final Main [facility]: [facility] Normal Ketone neg Final Main [facility]: [address] [facility] Normal Leukocytes neg Final [facility] Medical: [address] [facility] Normal Nitrite neg Final [facility]: [address] [facility] Normal Ph 6.[address] [facility] [address] [facility] Normal Protein neg Final Main Ca [facility] Medical: [address] [facility] Normal Specific [place] 1.020 Final [facility] Medical: [address] [facility] Normal Urobilinogen 0.2 Final [place] [facility] [place] [facility]: [address] [facility] Past Encounters 04/04/2021 Body Mass Index 30+ - Obesity; Hyperlipidemia; Essential Hypertension; Vitamin D Deficiency; Immunization Advised Aruna Sarmiento MD: [address] [place] [phone], Ph. 01/21/2021 Hyperlipidemia; Vitamin D Deficiency; Thyroid Function Tests Abnormal; Body Mass Index 30+ - Obesity; Elevated Blood-pressure Reading without Diagnosis of Hypertension; Retained Foreign Body; Chest Wall Pain Aruna Sarmiento MD: [address] [place] [phone], Ph. 12/15/2020 Patient New to Provider; Hyperlipidemia Screening; Endocrine/metabolic Screening; Venereal Disease Screening; Body Mass Index 30+ - Obesity; Elevated Blood-pressure Reading without Diagnosis of Hypertension; Retained Foreign Body; Immunization Due; Screening for Malignant Neoplasm of Colon; Left Inguinal Hernia Aruna Sarmiento MD: [address] [place] [phone], Ph. Social History Tobacco Smoking Status Never Smoker Vaccine List Vaccine Type COVID-19, mRNA, LNP-S, PF, 100 mcg/0.5 m L dose 10/21/2020 11/15/2020 Tdap .5 mL Plan of Care Reminders Provider Appointments None recorded. Lab None recorded. Referral None recorded. Procedures None recorded. Surgeries None recorded. Imaging None recorded. Vitals 04/04/2021 09:00AM ESTABLISHED [id number] Height Weight BMI Blood Pressure 68 in 214 lbs 4 oz 32.6 kg/m2 123/81 mm[Hg] 01/21/2021 09:40AM ESTABLISHED [id number] Height Weight BMI Blood Pressure 68 in 219 lbs 33.3 kg/m2 171/101 mm[Hg] 12/15/2020 02:20PM NEW PATIENT (14yrs - OLDER) Height Weight BMI Blood Pressure 68 in 219 lbs 16 oz 33.5 kg/m2 (1) 171/99 mm [Hg] (2) 157/100 mm[Hg]
--- OUTSIDE RECORDS SUMMARY | 2021-05-10 09:19 | CCD | Continuity of Care Document ---
Author Author Cameron VIERA PA Organization Unknown Address [address] [facility], [address] [place] [address] Phone [phone] Care Team Providers Care Game Tester Name Role Phone Olga Berman M.D. AUTM [phone] Problems Active Problems Provider Date Essential hypertension [...] Available Vital Signs Date Vital Result Comment 04/05/2021 10:04am BP Systolic 108 mmHg BP Diastolic 70 mmHg Body Temperature 98.3 F Height 68 inches 5'8" Weight 216.50 lb BMI (Body Mass Index) 32.9 kg/m2 [place] Body Weight 154 lb Weight 98.204 kg BSA (Body Surface Area) 2.11 m2 12/30/2020 1:34pm BP Systolic 166 mmHg BP Diastolic 96 mmHg Heart Rate 98 /min Height 68 inches 5'8" Weight 223.38 lb BMI (Body Mass Index) 34.0 kg/m2 [place] Body Weight 154 lb Weight 101.323 kg BSA (Body Surface Area) 2.14 m2 Results Test Acquired Date Facility Test Result H/L Range Note Laboratory test finding 03/23/2021 [facility] Main Lab [address] [place] [address] [phone] Pathology Request For Service (SEE NOTE) 1 [...] [id number] Procedures Date Code Description Status 03/23/2021 82203 Colonoscopy W/ Poly Completed Medical Devices Description [...] Valerio MD Plan of Treatment Future Appointment(s):* 04/12/2021 8:30 am - Jose Valerio MD at [facility] Functional Status Description No Information Available Mental Status Description No Information Available Referrals Refer to Reason for Referral Status Appt Date Jose Valerio MD SCHEDULE COLONOSCOPY Scheduled 12/14 [address] [facility] [address] [place] [address] [phone]
--- OUTSIDE RECORDS SUMMARY | 2021-05-10 09:19 | CCD | Continuity of Care Document ---
Author Author Cameron VALERIO MD Organization Unknown Address [address] [place] [id number] Phone [phone] Care Team Providers Care Intelligence Specialist Name Role Phone Olga Berman M.D. AUTM [phone] Problems Active Problems Provider Date Essential hypertension [...] lb BMI (Body Mass Index) 32.8 kg/m2 [place] Body Weight 154 lb Weight 97.978 kg BSA (Body Surface Area) 2.11 m2 04/05/2021 10:04am BP Systolic 108 mmHg BP Diastolic 70 mmHg Body Temperature 98.3 F Height 68 inches 5'8" Weight 216.50 lb BMI (Body Mass Index) 32.9 kg/m2 [place] Body Weight 154 lb Weight 98.204 kg BSA (Body Surface Area) 2.11 m2 Results Test Acquired Date Facility Test Result H/L Range Note Laboratory test finding 03/23/2021 [facility] Main Lab [address] [id number] [phone] Pathology Request For Service (SEE NOTE) 1 [...] 03/25/2021 0852 Procedures Date Code Description Status 04/07/2021 37192 Office/Outpatient Established Lo w MDM 20-29 Min Completed 04/05/2021 51985 Office/Outpatient Established Lo w MDM 20-29 Min Completed 03/23/2021 79284 Colonoscopy W/ Poly Completed Medical Devices Description No Information Available Encounters Type Date Location Provider Dx Diagnosis Office Visit 04/07/2021 2:00p [facility] Trung Valerio MD K40.90 Unil inguinal hernia, w/o ob st or gangr, not spcf as recur D12.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 Office Visit 04/05/2021 10:15a [facility] PAMELA Paredes 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 int w/o perfo ration or abscess w/o bleeding K40.90 Unil inguinal hernia, w/o ob st or gangr, not spcf as recur Assessments Date Code Description Provider 04/07/2021 K40.90 Left inguinal hernia Jose martel MD 04/07/2021 D12.3 Benign neoplasm of transverse co [place] Jose Valerio MD 04/05/2021 D12.3 Benign neoplasm of transverse co [...] Valerio MD Plan of Treatment Future Appointment(s):* 06/07/2021 10:15 am - PAMELA Cabrera at [facility] * 05/25/2021 3:45 pm - Jose Valerio MD at [facility] 04/07/2021 - Jose Valerio MD* K40.90 Left inguinal hernia* Comments:* Patient has of very prominent and largely reducible left inguinal hernia that is containing the sigmoid colon. This has not been reducible for several weeks to a couple of months now. No prior repair. I explained to him different options for repair. In my hands I feel that the robotic assisted laparoscopic repair would be best via transabdominal preperitoneal approach. We will attempt reduction of the herniating bowel and fix the hernia which will involve placement of a mesh at the preperitoneal space. This will be done under general anesthesia. Given the size of the hernia and the fact that this is irreducible I expected to take longer than a typical hernia repair. Likewise there are added risks to the procedure which includes risk of hurting the herniating bowel which is the sigmoid colon during the reduction. Likewise if we were not able to reduce the sigmoid colon we may need to convert to an open procedure or even a hybrid procedure. This also has high incidence of postoperative seroma or hematoma formation which may last several months.I explained to them that expect this to be a longer surgery. There is higher chances of injury to nearby structures including injury to the colon. Also I expect a higher chance of developing significant hematoma and seroma so most of the time I will leave a drain towards the scrotum. His questions and concerns were addressed at this time and consent has been obtained.We will asked the help of his primary doctor for optimization of his chronic comorbidities. * D12.3 Benign neoplasm of transverse colon Functional Status Description No Information Available Mental Status Description No Information Available Referrals Refer to Reason for Referral Status Appt Date Jose Valerio MD SCHEDULE COLONOSCOPY Scheduled 12/[address] [place] [address] [phone]
--- OUTSIDE RECORDS SUMMARY | 2021-05-10 09:19 | CCD ---
Continuity of Care Document (CCD) Created on: 04/08/2021 Cameron Morales External Reference #: [id number] : [id number] Sex: Male Author Author Cameron VIERA PA Organization Unknown Address [address], [address] [place] [address] Phone [phone] Care Team Providers Care Teacher Kindergarten Name Role Phone Olga Berman M.D. AUTM [phone] Problems Active Problems Provider Date Essential hypertension [...] lb BMI (Body Mass Index) 32.8 kg/m2 [place] Body Weight 154 lb Weight 97.978 kg BSA (Body Surface Area) 2.11 m2 04/05/2021 10:04am BP Systolic 108 mmHg BP Diastolic 70 mmHg Body Temperature 98.3 F Height 68 inches 5'8" Weight 216.50 lb BMI (Body Mass Index) 32.9 kg/m2 [place] Body Weight 154 lb Weight 98.204 kg BSA (Body Surface Area) 2.11 m2 Results Test Acquired Date Facility Test Result H/L Range Note Laboratory test finding 03/23/2021 [facility] Main Lab [address] [id number] [phone] Pathology Request For Service (SEE NOTE) 1 1 FINAL DIAGNOSIS Transverse colon polyp, polypectomy: Tubular adenoma. 03/24/2021 - 1525 CLINICAL DIAGNOSIS Screening 03/24/2021 - 1316 GROSS DIAGNOSIS Received in formalin labeled "transverse colon polyp" and consists of a fragment of tissue, 0.3 x 0.2 x 0.1 cm. All in one. 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 int w/o perfo ration or abscess w/o bleeding K40.90 Unil inguinal hernia, w/o ob st or gangr, not spcf as recur Assessments Date Code Description Provider 04/05/2021 D12.3 [...] 06/07/2021 10:15 am - PAMELA Cabrera at [facility] * 05/25/2021 3:45 pm - Jose Valerio MD at [facility] 04/05/2021 - PAMELA Cabrera* D12.3 Benign neoplasm of transverse colon * K57.30 Diverticulosis of large intestine without perforation or abscess without bleeding * K40.90 Unilateral inguinal hernia, without obstruction or gangrene, not specified as recurrent Functional Status Description No Information Available Mental Status Description No Information Available Referrals Refer to Dr Reason for Referral Status Appt Date Jose Valerio MD SCHEDULE COLONOSCOPY Scheduled 12/[address] [place] [address] [phone]
[2021-05-10] MEDS ORDERED: LIDOCAINE 1% SDV 30ML VIAL As Ordered ONE (10:50)
[2021-05-10] MEDS ORDERED: BUPIVACAINE HCL 0.25% 30ML VIAL As Ordered ONE (10:50)
[2021-05-10] MEDS ORDERED: fentaNYL 100 MCG/2 ML INJECTION (J3010) As Ordered ONE (12:14)
[2021-05-10] MEDS ORDERED: dexameTHASONE 4 MG/ML 1ML VIAL (J1100 PER 1MG) As Ordered ONE (12:16)
[2021-05-10] MEDS ORDERED: LIDOCAINE 2% 100MG/5ML SDV (FOR ANES.) As Ordered ONE (12:16)
[2021-05-10] MEDS ORDERED: propofoL 200 MG/20 ML VIAL As Ordered ONE (12:16)
[2021-05-10] MEDS ORDERED: ONDANSETRON 4MG/2ML VIAL As Ordered ONE (12:16)
[2021-05-10] MEDS ORDERED: MIDAZOLAM INJ 2MG/2ML VIAL (J2250 PER 1MG) As Ordered ONE (12:16)
[2021-05-10] MEDS ORDERED: ROCURONIUM BROMIDE 50 MG/5 ML VIAL As Ordered ONE ×3 (12:16→14:34)
[2021-05-10] MEDS ORDERED: fentaNYL 250 MCG/5 ML INJECTION (J3010) As Ordered ONE (12:16)
[2021-05-10] MEDS ORDERED: ePHEDrine SULFATE 25 MG/5 ML(5MG/ML) SYRINGE As Ordered ONE (12:19)
[2021-05-10] MEDS ORDERED: ACETAMINOPHEN 1000MG 100ML IV BTL (OFIRMEV) (J0131 PER 10MG) As Ordered ONE (12:21)
[2021-05-10] MEDS ORDERED: SUGAMMADEX SODIUM 500 MG/5 ML VIAL (BRIDION) As Ordered ONE (12:23)
[2021-05-10] MEDS ORDERED: HYDROmorphone HCL 2 MG/ML 1ML VIAL As Ordered ONE (13:33)
[2021-05-10] MEDS ORDERED: fentaNYL 100 MCG/2 ML INJECTION (J3010) IV PRN ×2 (16:25→19:35)
[2021-05-10] MEDS ORDERED: ONDANSETRON 4MG/2ML VIAL IV PRN ×3 (16:25→19:35)
[2021-05-10] MEDS ORDERED: METOCLOPRAMIDE INJ 10MG/2ML VIAL (J2765 PER 1) IV PRN ×2 (16:25→19:35)
[2021-05-10] MEDS ORDERED: NORCO, ANEXSIA 5/325MG TABLET (HYDROcodone/ACETAMINOPHEN) PO PRN (16:25)
[2021-05-10] MEDS ORDERED: PROMETHAZINE INJ 25 MG/ML VIAL (J2550) IV PRN ×2 (16:25→19:35)
[2021-05-10] MEDS ORDERED: PERCOCET 5MG/325MG TAB PO PRN ×2 (16:25→19:35)
[2021-05-10] MEDS ORDERED: LR 1,000 ML IV SCH ×2 (16:25→19:35)
[2021-05-10] MEDS ORDERED: KETOROLAC 30 MG/ML 1ML VIAL IV PRN (16:30)
[2021-05-10] MEDS ORDERED: HumaLOG INSULIN (NovoLOG) PER UNIT SC ONE (17:25)
[2021-05-10] MEDS ORDERED: HumaLOG INSULIN (NovoLOG) PER UNIT SC SCH (19:35)
[2021-05-10 20:35] VITALS: BP 137/72
--- NOTE | 2021-05-11 08:52 | ROOPDOC ---
[facility] Report Of Operation Report of Operation DATE OF PROCEDURE: 05/10/21 PREPROCEDURE DIAGNOSES: Left inguinal scrotal hernia, chronically incarcerated sigmoid colon POSTPROCEDURE DIAGNOSES: Left inguinal scrotal hernia with chronically incarcerated sigmoid colon. PROCEDURE PERFORMED: Robotic assisted laparoscopic transabdominal preperitoneal repair of large left inguinal scrotal hernia, reduction of incarcerated:, Placement of 17 x 12 cm mid weight polypropylene mesh. SURGEON: Jose Valerio MD, [employer] DEVELOPMENT MANAGER: Padmini Jenkins NP Ms. Mckeonell assisted me with placement of ports, management and exchange of instruments, sutures on the field, adjustment of the robotic arms, reduction of the incarcerated colon, closure ports ANESTHESIA: General endotracheal anesthesia. ESTIMATED BLOOD LOSS: Approximately 20 mL. COMPLICATIONS: None. REMARKS: Patient is a 61-year-old male with a large inguinal scrotal hernia, the past few months he is not able to reduce this anymore and has persistently been staying inside of his scrotum. Mild discomfort voiced from this but still with regular bowel movements, good bowel function. He is being brought today for repair of his hernia.. FINDINGS: Very redundant sigmoid colon that is incarcerated within the scrotum and inguinal canal. This is chronic. It took more than an hour to reduce the colon back into the abdominal cavity with both external pressure, preperitoneal dissection. Very redundant sac. This was divided after the retroperitoneal structures were dissected away from the sac. The distal sac was allowed to retract back into the inguinal canal/scrotum. An extra-large mid weight polypropylene mesh was placed to cover the defect. A 7 flat drain was left in the inguinal canal in anticipation of hematoma/seroma formation. drains: 7 flat charley drain in the inguinal canal. DESCRIPTION OF PROCEDURE: Patient received 2 g of Ancef IV preoperatively for wound prophylaxis. Patient was brought to the operating room, placed supine on the operating table. Compression boots placed in both lower extremities for DVT prophylaxis. After adequate general anesthesia started, he was positioned on the table with both arms tucked. A sandoval catheter placed without difficulty. His abdomen and groin/pelvic area then prepped and draped in the usual sterile fashion. We paused for a surgical timeout using both pre-incision safety checklist to verify correct patient, procedure site and additional clinical information prior to beginning the procedure His left inguinal hernia remains incarcerated given with general anesthesia. Entry to the abdomen done through a small incision at the mid abdominal area towards the left side as I am anticipating a wider dissection than normal given the recurrent hernia. A Veress needle is inserted on a controlled fashion. CO2 insufflation started to pressure 15 mmHg. Using the same incision an 8 mm robotic trochard was then placed under direct vision of a 5mm laparoscope. The insertion site was inspected for injury and none was found. Patient was then positioned on a 10 degreeTrendelenburg position for adequate view of the hernia defect. Again anticipating need for wider dissection I placed 3 8mm working ports; 2 to the right of the camera trocar in 1 to the left, each port about 10 cms apart. The oLyfe robot tower was then positioned in place and the trochars docked onto the robot. The robotic instruments were placed and positioned. I then unscrubbed and took control of the camera and the laparoscopic instruments at the surgeon's console. I used a 30 degree 8 mm robotic laparoscope, A forced bipolar forceps with bipolar cautery on the right arm and A judy-cut laparoscopic scissor with unipolar cautery in arm 1 was used, later on exhanged for a abel suture cut needle cement truck driver. I used a Tip Up fenestrated grasper then later exchanged for a prograsp on the additional retracting arm. On initial entry the sigmoid colon remains incarcerated within the inguinal canal. I tried to externally manipulated to reduce it back into the abdomen but was not successful in fully reducing the incarcerated loop of sigmoid colon. I had my judicial administrative assistant put constant pressure through to the scrotum and groin while I pulled on the epiploic fat tissue to avoid traction injury to the colon. It bulged a little bit but was not able to be fully reduced. No signs of acute ischemia or bowel obstruction that I could see. I then proceeded dissecting the preperitoneal space. I opened up the peritoneal flap high up proximal or superior to the arcuate ligament on the left side and extended this laterally and medially. The umbilical ligament was divided. I widely dissected a peritoneal flap past the midline and symphysis pubis and towards the right umbilical ligament and past the anterior superior iliac spine laterally. As I approached the large defect at the internal ring I pulled on the hernia sac while dissecting some of the more noticeable fibrotic attachments of the sac to the canal to try to reduce the sac and contents out of the inguinal canal. I went back and forth tugging on the colon itself and then dissecting back at the inguinal ring and pulling back on the sac until I was able to fully reduce the sigmoid colon out of the inguinal canal. This took nearly an hour and a half to complete. After complete reduction of the herniating sigmoid colon I dissected some of its attachments to the hernia sac to fully reduce it and for it not to retract back into the canal. I then evaluated the sac itself. This remains connected way up in the canal probably to the scrotum and testicle. With a large amount of content I expect this to be long and redundant. I also expect the testicular vessel and ductus deferens to be adhered to the underside of the sac. I tried to evaluate the course of the testicular ducts and vessels intraperitoneally but the course of the sigmoid colon and redundancy of fat and fatty appendages to th e colon was obscuring the view. Thus I decided to dissect the testicular vessels of the sac by staying to the sac itself. I started diving into the attached adipose tissues while retracting the sac medially and lifting it off the retroperitoneal/preperitoneal structures in an effort to dissect and peel away the testicular vessels and identify also the ductus deferens and avoid in jury to the structures. This is a lot more tedious than I expect due to the redundancy of the sac. Once I was getting into a hole and proving difficult to continue I would then went to the medial side dissecting the sac off the retroperitoneal tissue on the medial side of the hernia sac in an effort to identify and tease and dissect away the vas deferens. I again went back and forth until I was able to circumferentially, around the sac. I was tugging on the sac to see if I could see the end but this proved to be quite redundant as I expect so I decided to trim the sac at the safe level once I was able to fully identify the testicular vessels and vas deferens. I let the distal portion of the sac retract back into the inguinal canal. I then completed my preperitoneal dissection by extending my pelvic dissection inferiorly to expose the course of the pubic tubercles and about 2 or 3 cm below this and extending also my lateral dissection and further retracting the distal portion of the cut off sac in anticipation of needing to space for the extra large piece of mesh. I then evaluated the defect that was at the middle of the peritoneal flap from me transecting the sac. This was quite large. They started putting this together with a running suture of 3 OV lock initially from the preperitoneal side to make sure I do not get the testicular vessels and vas deferens and then switching to the intraperitoneal side by lifting the flap up to the abdominal wall. This essentially requires pulling back the previously dissected peritoneal portions of the edge of the sigmoid colon that I dissected initially back to close the flap. In anticipation of a good amount of seroma that we will perform from the space left over from the reduction of the inguinal hernia, I had my judicial administrative assistant placed a 5 mm port through the groin and I threaded a 7 flat Luiz-Wallace drain through this and left this in the inguinal canal. I then obtained an extra large 17 x 12 cm 3D axial max mid weight and this is introduced into the abdomen. This was positioned to center on the defect and appears to be adequately covering the defect both laterally medially and inferiorly. I used a 2-0 Vicryl to suture the mesh to prevent it from moving around to the symphysis pubis, Edouard's ligament, rectus muscle superiorly. I then came down to as low as 6 mmHg of pneumoperitoneum to close the sac. I surveyed the closed peritoneal flap for any holes. I then surveyed the abdomen and pelvis for any signs of injury. The instruments were removed. The abdomen was deflated. All ports were removed. The skin incisions were closed with 4-0 Monocryl in subcuticular fashion. The drain secured to the skin with 2 O Vicryl. The incisions were covered with Dermabond. The port sites were again infiltrated with local anesthesia. An ilioinguinal nerve block was also performed. Patient was promptly awakened, extubated and brought to the recovery room stable Count of sponges and instruments were verified correct. JOSE VALERIO MD May 11, 2021 08:52
== END 2021-05-10 20:55 | disposition home or self-care (01) ==
LOC: M SDC 09:14
PROVIDERS: ATTEND Surgery
DX: K40.30 Unilateral inguinal hernia, with obstruction, without gangrene, not specified as recurrent (principal); I10 Essential (primary) hypertension; D12.3 Benign neoplasm of transverse colon; M54.9 Dorsalgia, unspecified; Z79.899 Other long term (current) drug therapy
CPT/HCPCS: 49650; 64425; C1781; J0131; J0690; J1100; J1170; J1885; J2250; J2405; J2765; J3010; S2900

== ENCOUNTER → 2022-11-13 | Outpatient (REF) | payer OTHER ==
[~2022-11-13] MED LIST changes: -CelecoXIB 400 MG CAP PO ONE; -LIDOCAINE 1% MDV 20ML VIAL SQ PRN; -LR 1,000 ML IV ONE; -ceFAZolin SOD 2 GM in IV 1 EA IV ONE
[2022-11-13 14:56] LABS: THYROID STIMULATING HORMONE 1.039 uIU/ML (0.55-4.78)
[2022-11-13 14:58] LABS: ALBUMIN 3.8 G/DL (3.2-5.2); ALKALINE PHOSPHATASE 99 U/L (46-116); ALT/SGPT 33 U/L (7.0-40); AST/SGOT 26 U/L (<34); BILIRUBIN,TOTAL 0.4 MG/DL (0.3-1.2); BLOOD UREA NITROGEN 12 MG/DL (9-23); CALCIUM LEVEL 9.4 MG/DL (8.3-10.6); CARBON DIOXIDE LEVEL 28 MMOL/L (20-31); CHLORIDE LEVEL 105 MMOL/L (98-107); CREATININE FOR GFR 0.98 MG/DL (0.70-1.30); GLOMERULAR FILTRATION RATE > 60.0 (>49); GLUCOSE, FASTING 117 MG/DL (74-106); POTASSIUM SERUM 5.3 MMOL/L (3.5-5.1); SODIUM LEVEL 139 MMOL/L (136-145); TOTAL PROTEIN 7.1 G/DL (5.7-8.2)
[2022-11-13 15:02] LABS: TOTAL 25(OH) VITAMIN D 43.6 NG/ML (20.0-100.0)
[2022-11-13 15:30] LABS: HEMOGLOBIN A1c 5.7 % (4.0-6.0)
== END ==
LOC: M LAB REF 12:26
PROVIDERS: ATTEND Pediatrics
DX: E55.9 Vitamin D deficiency, unspecified (principal); Z12.5 Encounter for screening for malignant neoplasm of prostate; E78.5 Hyperlipidemia, unspecified; E66.9 Obesity, unspecified; Z68.30 Body mass index [BMI] 30.0-30.9, adult

== ENCOUNTER → 2023-06-22 | Outpatient (REF) | payer OTHER ==
[2023-06-22 15:16] LABS: BASO # 0.1 10^3/uL (0.0-0.2); BASO % 0.6 % (0.0-1.0); EOS # 0.4 10^3/uL (0.0-0.5); EOS % 4.1 % (0.0-3.0); HEMATOCRIT 51.6 % (42.0-52.0); LYMPH # 2.6 10^3/uL (1.5-5.0); LYMPH % 27.3 % (24.0-44.0); MEAN CORPUSCULAR HEMOGLOBIN 31.8 pg (27.0-33.0); MEAN CORPUSCULAR HGB CONC 32.9 g/dl (32.0-36.5); MEAN CORPUSCULAR VOLUME 96.4 fl (80.0-96.0); MONO # 0.9 10^3/uL (0.0-0.8); MONO % 9.9 % (2.0-8.0); NEUTROPHILS # 5.5 10^3/uL (1.5-8.5); NEUTROPHILS % 57.4 % (36.0-66.0); PLATELET COUNT, AUTOMATED 410 10^3/uL (150-450); RED BLOOD COUNT 5.35 10^6/uL (4.30-6.10); WHITE BLOOD COUNT 9.5 10^3/uL (4.0-10.0)
[2023-06-22 15:29] LABS: CREATININE, URINE 176.8 MG/DL
[2023-06-22 15:34] LABS: BLOOD UREA NITROGEN 13 MG/DL (9-23); CALCIUM LEVEL 9.5 MG/DL (8.3-10.6); CARBON DIOXIDE LEVEL 29 MMOL/L (20-31); CHLORIDE LEVEL 103 MMOL/L (98-107); CREATININE FOR GFR 0.93 MG/DL (0.70-1.30); GLOMERULAR FILTRATION RATE > 60.0 (>49); GLUCOSE, FASTING 97 MG/DL (74-106); SODIUM LEVEL 140 MMOL/L (136-145)
== END ==
LOC: M LAB REF 12:19
PROVIDERS: ATTEND Pediatrics
DX: I10 Essential (primary) hypertension (principal)

== ENCOUNTER → 2024-04-01 | Outpatient (REF) | payer OTHER ==
[2024-04-01 13:52] LABS: MALB URINE SIEMENS < 3.0 MG/L; MAU/CREAT RATIO 2.2 MCG/MG (0.0-30.0)
[2024-04-01 14:28] LABS: PSA SCREENING 1.38 NG/ML (< 4.00)
[2024-04-01 14:32] LABS: THYROID STIMULATING HORMONE 2.781 uIU/ML (0.55-4.78)
[2024-04-01 14:41] LABS: ALBUMIN 4.3 G/DL (3.2-5.2); ALKALINE PHOSPHATASE 93 U/L (46-116); ALT/SGPT 32 U/L (7.0-40); AST/SGOT 25 U/L (<34); BILIRUBIN,DIRECT 0.2 MG/DL (<0.4); BILIRUBIN,TOTAL 0.6 MG/DL (0.3-1.2); BLOOD UREA NITROGEN 12 MG/DL (9-23); CALCIUM LEVEL 10.3 MG/DL (8.3-10.6); CARBON DIOXIDE LEVEL 27 MMOL/L (20-31); CHLORIDE LEVEL 105 MMOL/L (98-107); CHOLESTEROL LEVEL 221 MG/DL (<200); CHOLESTEROL RISK RATIO 7.31 (<5); CREATININE FOR GFR 0.96 MG/DL (0.70-1.30); GLOMERULAR FILTRATION RATE > 60.0 (>49); GLUCOSE, FASTING 120 MG/DL (74-106); HDL CHOLESTEROL 30.2 MG/DL (>40); LDL CHOLESTEROL 153.6 MG/DL (<100); NON-HDL-C 190.8 MG/DL; POTASSIUM SERUM 4.9 MMOL/L (3.5-5.1); SODIUM LEVEL 138 MMOL/L (136-145); TOTAL PROTEIN 7.8 G/DL (5.7-8.2); TRIGLYCERIDES LEVEL 186 MG/DL (<150)
== END ==
LOC: M LAB REF 12:57
PROVIDERS: ATTEND Pediatrics
DX: I10 Essential (primary) hypertension (principal)

== ENCOUNTER → 2024-10-14 | Outpatient (REF) | payer OTHER ==
[2024-10-14 15:05] LABS: MAU/CREAT RATIO 4.2 MCG/MG (0.0-30.0)
[2024-10-14 15:13] LABS: BLOOD UREA NITROGEN 15 MG/DL (9-23); CARBON DIOXIDE LEVEL 30 MMOL/L (20-31); CHLORIDE LEVEL 105 MMOL/L (98-107); CREATININE FOR GFR 0.93 MG/DL (0.70-1.30); GLOMERULAR FILTRATION RATE > 60.0 (>49); GLUCOSE, FASTING 108 MG/DL (74-106); POTASSIUM SERUM 4.9 MMOL/L (3.5-5.1); SODIUM LEVEL 141 MMOL/L (136-145)
[2024-10-14 15:37] LABS: HEMOGLOBIN A1c 5.1 % (4.0-6.0)
== END ==
LOC: M LAB REF 12:33
PROVIDERS: ATTEND Pediatrics
DX: I10 Essential (primary) hypertension (principal); R73.03 Prediabetes

== ENCOUNTER → 2025-04-29 | Outpatient (REF) | payer OTHER ==
[2025-04-29 13:12] LABS: PSA SCREENING 1.24 NG/ML (< 4.00)
[2025-04-29 13:16] LABS: TOTAL 25(OH) VITAMIN D 53.2 NG/ML (20.0-100.0)
== END ==
LOC: M LAB REF 11:59
PROVIDERS: ATTEND Pediatrics
DX: E55.9 Vitamin D deficiency, unspecified (principal); E66.3 Overweight; Z68.29 Body mass index [BMI] 29.0-29.9, adult; Z12.5 Encounter for screening for malignant neoplasm of prostate